=== PATIENT | male | born 1940 | race Caucasian/White ===

== ENCOUNTER → 2016-10-09 | Outpatient (CLI) | payer OTHER, BC ==
[~2016-10-09] MED LIST: ALPR0.25 PO; ASPCH81X PO; ATOR-26 PO; CARV6.252 PO; CLOP1TAB5 PO; CRD200 PO; CYAN10002 IM; DOCU-94 PO; ERGO500037 PO; FINA5TAB4 PO; FOLI1TAB7 PO; HYDR-3983 PO; ISOS-11 PO; LEVO125T72 PO; MAGN400T5 PO; NITRSPR6 TL; NSNN50 NAE; OXGN; OXYB5TAB74 PO; PANT40TA PO; POLY335019 PO; RAMI2.5C PO; RANI150T3 PO; ROPI0.5T15 PO; RQP/5 PO; TAMS0.4C59 PO; WLLSR/150 PO
[2016-10-09 19:26] LABS: BLOOD UREA NITROGEN 38 mg/dl (7-18); BUN/CREATININE RATIO 25.1 (10-20); CALCIUM 9.1 mg/dl (8.5-10.1); CARBON DIOXIDE 27 mmol/L (21-32); CHLORIDE 105 mmol/L (98-107); GLUCOSE 80 mg/dl (70-99); SODIUM 139 mmol/L (136-145)
[2016-10-09 19:37] LABS: PHOSPHORUS 3.3 mg/dl (2.5-4.9)
[2016-10-13 16:24] LABS: URCREATININE 89.8 MG/DL (>/= 20)
--- NOTE | 2016-10-15 12:22 | CODING QUERY MEDICAL NECESSITY ---
SUPPORTING DIAGNOSIS NEEDED Ritter SHARMA, A supporting diagnosis is required for the test/procedure performed on this patient in order for us to be reimbursed by the patient's insurance. Please provide a supporting diagnosis for the following test/procedure listed below next to the test name along with your signature. *If there is no additional diagnosis for this patient that would support the following test/procedure please document that below next to the test/procedure. Test(s)/Procedure(s) that require a supporting diagnosis: * ([id number]) DRUG SCREEN URINE DIAGNOSIS: * ([id number]) BENZODIAZEPINE VERIFICAT URINE DIAGNOSIS: DATE OF SERVICE: 10/09/16 Provider Signature: Date: Thank you Frankie Hargrove [facility] Information Management Once completed, please kindly fax back to [phone] For questions please call [phone]
== END | disposition home or self-care (01) ==
LOC: C.LABMFLN 11:55
PROVIDERS: ATTEND Internal Medicine Nephrology
DX: E03.9 Hypothyroidism, unspecified (principal); N18.3 Chronic kidney disease, stage 3 (moderate); Z02.89 Encounter for other administrative examinations

== ENCOUNTER → 2016-10-10 | Outpatient (CLI) | payer OTHER, BC ==
[2016-10-10 13:31] LABS: CHOLESTEROL/HDL RATIO 2.7
== END | disposition home or self-care (01) ==
LOC: C.LABMFLN 07:55
PROVIDERS: ATTEND Nurse Practitioner Adult Health
DX: E78.5 Hyperlipidemia, unspecified (principal)

== ENCOUNTER → 2016-12-12 | Outpatient (CLI) | payer OTHER, BC ==
[~2016-12-12] MED LIST changes: +DTR/5 PO; -OXYB5TAB74 PO
--- NOTE | 2016-12-12 14:15 | DIAGNOSTIC IMAGING REPORT ---
CT HEAD WITHOUT CONTRAST (CT) CLINICAL HISTORY: CEREBRAL VASCULAR DISEASE, GAIT APRAXIA LEG WEAKNESS COMPARISON STUDY: 11/10/2011 TECHNIQUE: Axial CT of the brain is performed from the vertex to the skull base. IV contrast was not administered for this examination. CT DOSE: 729.78 mGycm FINDINGS: No intra or extra-axial mass lesions are visualized. There is no CT evidence of acute cortical infarction. There is no evidence of midline shift. There is no acute hemorrhage. No calvarial fractures are visualized. There are patchy white matter hypodensities likely on a small vessel basis. There is no evidence of pathologic ventricular dilatation. There is no evidence of acute sinusitis IMPRESSION: No acute intracranial findings Electronically signed by: Spencer Holly M.D. 12/12/2016 2:13 PM Dictated Date/Time: 12/12/2016 2:08 PM
== END | disposition home or self-care (01) ==
LOC: C.CTS 13:19
PROVIDERS: ATTEND Psychiatry & Neurology Neurology
DX: I67.9 Cerebrovascular disease, unspecified (principal); N31.9 Neuromuscular dysfunction of bladder, unspecified; R48.2 Apraxia

== ENCOUNTER → 2017-01-23 | Outpatient (CLI) | payer OTHER, BC ==
--- NOTE | 2017-01-23 14:55 | DIAGNOSTIC IMAGING REPORT ---
L-SPINE MIN 4 VIEWS ROUTINE CLINICAL HISTORY: N31.9 Neurogenic [id number] chronic back pain COMPARISON STUDY: No previous studies for comparison. FINDINGS: There are advanced multilevel degenerative changes. There is multilevel disc space narrowing and prominent lateral osteophyte formation. No acute fractures or traumatic subluxations are visualized. Note is made of vascular calcifications. IMPRESSION: Advanced multilevel degenerative change. No acute fractures. Electronically signed by: Spencer Holly M.D. 01/23/2017 2:53 PM Dictated Date/Time: 01/23/2017 2:52 PM
--- NOTE | 2017-01-23 15:08 | DIAGNOSTIC IMAGING REPORT ---
CERVICAL SPINE 5 VIEWS HISTORY: Neurogenic bladder. COMPARISON: None. FINDINGS: The cervical spinal is from C1 through the superior endplate of C7 on the lateral view. There is reversal of the normal lordotic curvature. There is 1.8 mm anterolisthesis of C2 on C3. Severe disc space narrowing at C3-C4 and C4-C5. The C5-C6 vertebral bodies are likely fused. There is no fracture. Mild to moderate facet degenerative changes throughout the cervical spine. There is also mild to moderate bilateral neural foraminal narrowing throughout the cervical spine. Pacemaker wires are noted. Poststernotomy changes. Prevertebral soft tissues and the atlantodens interval are intact. IMPRESSION: 1. No fractures within the cervical spine. 2. Advanced degenerative changes as described above. There is fusion of the C5-C6 vertebral bodies. 3. Reversal of the normal lordotic curvature. Electronically signed by: Jose Cruz Byrnes M.D. 01/23/2017 3:06 PM Dictated Date/Time: 01/23/2017 3:04 PM
--- NOTE | 2017-01-23 15:34 | DIAGNOSTIC IMAGING REPORT ---
THORACIC SPINE 3 VIEWS HISTORY: N31.9 Neurogenic [id number] COMPARISON: None. FINDINGS: There is no fracture. No subluxation. Straightening of the upper to mid thoracic spine. There are large anterior flowing osteophytes within the mid thoracic spine. Moderate to severe degenerative disc disease throughout the thoracic spine. Left-sided pacemaker/defibrillator. Poststernotomy changes. IMPRESSION: No fracture or subluxation within the thoracic spine. Moderate to severe degenerative disc disease. Electronically signed by: Jose Cruz Byrnes M.D. 01/23/2017 3:33 PM Dictated Date/Time: 01/23/2017 3:32 PM
== END | disposition home or self-care (01) ==
LOC: C.RAD 13:27
PROVIDERS: ATTEND Psychiatry & Neurology Neurology
DX: N31.9 Neuromuscular dysfunction of bladder, unspecified (principal); M48.02 Spinal stenosis, cervical region; M47.812 Spondylosis without myelopathy or radiculopathy, cervical region; M50.31 Other cervical disc degeneration, high cervical region; M50.321 Other cervical disc degeneration at C4-C5 level; M40.202 Unspecified kyphosis, cervical region; M51.36 Other intervertebral disc degeneration, lumbar region; M51.34 Other intervertebral disc degeneration, thoracic region

== ENCOUNTER → 2017-02-02 | Outpatient (CLI) | payer OTHER, BC ==
[2017-02-02 18:53] LABS: ALT/SGPT 24 U/L (12-78); AST/SGOT 23 U/L (15-37); BLOOD UREA NITROGEN 37 mg/dl (7-18); BUN/CREATININE RATIO 24.8 (10-20); CALCIUM 8.5 mg/dl (8.5-10.1); CARBON DIOXIDE 28 mmol/L (21-32); CHLORIDE 106 mmol/L (98-107); GLUCOSE 93 mg/dl (70-99); POTASSIUM 4.9 mmol/L (3.5-5.1); SODIUM 141 mmol/L (136-145)
[2017-02-02 18:58] LABS: ALB/GLOB RATIO 0.7 (0.9-2); ALKALINE PHOSPHATASE 112 U/L (45-117); PHOSPHORUS 3.3 mg/dl (2.5-4.9); PROSTATE SPECIFIC ANTIGEN 0.133 ng/ml (0.000-4.000)
--- NOTE | 2017-02-06 08:47 | CODING QUERY MEDICAL NECESSITY ---
SUPPORTING DIAGNOSIS NEEDED Dr. Ware, A supporting diagnosis is required for the test/procedure performed on this patient in order for us to be reimbursed by the patient's insurance. Please provide a supporting diagnosis for the following test/procedure listed below next to the test name along with your signature. *If there is no additional diagnosis for this patient that would support the following test/procedure please document that below next to the test/procedure. Test(s)/Procedure(s) that require a supporting diagnosis: * ([id number]) B12 VITAMIN LEVEL DIAGNOSIS: * ([id number]) FOLATE LEVEL DIAGNOSIS: DATE OF SERVICE: 02/02/17 Provider Signature: Date: Thank you Frankie Hargrove [facility] Information Management Once completed, please kindly fax back to [phone] For questions please call [phone]
== END | disposition home or self-care (01) ==
LOC: C.LABMFLN 12:35
PROVIDERS: ATTEND Internal Medicine Nephrology
DX: N40.1 Benign prostatic hyperplasia with lower urinary tract symptoms (principal); N18.3 Chronic kidney disease, stage 3 (moderate); G62.9 Polyneuropathy, unspecified; E53.8 Deficiency of other specified B group vitamins; R26.9 Unspecified abnormalities of gait and mobility; G60.3 Idiopathic progressive neuropathy

== ENCOUNTER → 2017-02-13 | Outpatient (CLI) | payer OTHER, BC ==
[2017-02-17 06:13] LABS: ALBUMIN % 38.21 %; ALPHA-2-GLOBULIN % 14.79 %; BETA GLOBULIN % 20.43 %; CREATININE UR 73 MG/DL (20-370); GAMMA GLOBULIN % 21.36 %
== END | disposition home or self-care (01) ==
LOC: C.LABMFLN 12:45
PROVIDERS: ATTEND Psychiatry & Neurology Neurology
DX: G62.9 Polyneuropathy, unspecified (principal)

== ENCOUNTER → 2017-05-06 | Outpatient (CLI) | payer OTHER, BC ==
[~2017-05-06] MED LIST changes: -DTR/5 PO; +OXYB5TAB74 PO
== END | disposition home or self-care (01) ==
LOC: C.LABMFLN 13:27
PROVIDERS: ATTEND Urology
DX: N40.1 Benign prostatic hyperplasia with lower urinary tract symptoms (principal)

== ENCOUNTER → 2017-06-22 | Outpatient (CLI) | payer OTHER, BC ==
[~2017-06-22] MED LIST changes: +DTR/5 PO; -OXYB5TAB74 PO
[2017-06-22 18:29] LABS: ALT/SGPT 23 U/L (12-78); AST/SGOT 28 U/L (15-37); BLOOD UREA NITROGEN 31 mg/dl (7-18); BUN/CREATININE RATIO 21.7 (10-20); CARBON DIOXIDE 29 mmol/L (21-32); CHLORIDE 103 mmol/L (98-107); CREATININE 1.44 mg/dl (0.60-1.40); GLUCOSE 74 mg/dl (70-99); MAGNESIUM 1.8 mg/dl (1.8-2.4); POTASSIUM 4.6 mmol/L (3.5-5.1); SODIUM 137 mmol/L (136-145)
[2017-06-22 18:37] LABS: ALB/GLOB RATIO 0.7 (0.9-2); ALKALINE PHOSPHATASE 119 U/L (45-117); CHOLESTEROL 89 mg/dl (0-200); CHOLESTEROL/HDL RATIO 2.7; FERRITIN 110.7 ng/ml (8.0-388.0); HDL CHOLESTEROL 33 mg/dl; LDL CHOLESTEROL CALCULATED 34 mg/dl; TRIGLYCERIDES 110 mg/dl (0-150); VERY LOW DENSITY LIPOPROT CALC 22 mg/dl
--- NOTE | 2017-07-01 07:02 | CODING QUERY MEDICAL NECESSITY ---
SUPPORTING DIAGNOSIS NEEDED A supporting diagnosis is required for the test/procedure performed on this patient in order for us to be reimbursed by the patient's insurance. Please provide a supporting diagnosis for the following test/procedure listed below next to the test name along with your signature. *If there is no additional diagnosis for this patient that would support the following test/procedure please document that below next to the test/procedure. Test(s)/Procedure(s) that require a supporting diagnosis: * VITAMIN B12 DIAGNOSIS: Provider Signature: Date: Thank you Praveena Warner too[employer]me Information Management Once completed, please kindly fax back to [phone] For questions please call [phone]
== END | disposition home or self-care (01) ==
LOC: C.LABMFLN 14:00
PROVIDERS: ATTEND Nurse Practitioner Family
DX: N40.1 Benign prostatic hyperplasia with lower urinary tract symptoms (principal); I25.10 Atherosclerotic heart disease of native coronary artery without angina pectoris; K21.0 Gastro-esophageal reflux disease with esophagitis; I48.91 Unspecified atrial fibrillation; I12.9 Hypertensive chronic kidney disease with stage 1 through stage 4 chronic kidney disease, or unspecified chronic kidney disease; J45.909 Unspecified asthma, uncomplicated; N18.3 Chronic kidney disease, stage 3 (moderate); G89.29 Other chronic pain; G47.33 Obstructive sleep apnea (adult) (pediatric); E78.5 Hyperlipidemia, unspecified

== ENCOUNTER → 2017-07-21 | Outpatient (CLI) | payer OTHER, BC ==
[2017-07-21 18:11] LABS: BLOOD UREA NITROGEN 36 mg/dl (7-18); CREATININE 1.43 mg/dl (0.60-1.40)
== END | disposition home or self-care (01) ==
LOC: C.LABMFLN 14:58
PROVIDERS: ATTEND Physician Assistant
DX: M54.5 Low back pain (principal)

== ENCOUNTER → 2017-09-02 | Outpatient (CLI) | payer OTHER, BC ==
[~2017-09-02] MED LIST changes: -FOLI1TAB7 PO; +FOLI1TAB8 PO
[2017-09-02 17:57] LABS: HEMATOCRIT 36.8 % (42-52); HEMOGLOBIN 11.9 g/dL (14.0-18.0); MEAN CELL VOLUME 93.9 fL (80-100); MEAN CORPUSCULAR HEMOGLOBIN 30.4 pg (25-34); MEAN CORPUSCULAR HGB CONC 32.3 g/dl (32-36); MEAN PLATELET VOLUME 10.4 fL (7.4-10.4); PLATELET COUNT 183 K/uL (130-400); RED CELL DISTRIBUTION WIDTH CV 15.4 % (11.5-14.5); RED CELL DISTRIBUTION WIDTH SD 53.3 fL (36.4-46.3); WHITE BLOOD COUNT 5.73 K/uL (4.8-10.8)
[2017-09-02 18:17] LABS: BLOOD UREA NITROGEN 32 mg/dl (7-18); CALCIUM 9.1 mg/dl (8.5-10.1); CARBON DIOXIDE 28 mmol/L (21-32); CREATININE 1.45 mg/dl (0.60-1.40); GLUCOSE 90 mg/dl (70-99); POTASSIUM 4.1 mmol/L (3.5-5.1); SODIUM 137 mmol/L (136-145)
[2017-09-02 18:28] LABS: PHOSPHORUS 2.9 mg/dl (2.5-4.9)
== END | disposition home or self-care (01) ==
LOC: C.LABMFLN 12:17
PROVIDERS: ATTEND Internal Medicine Nephrology
DX: E03.9 Hypothyroidism, unspecified (principal); N18.3 Chronic kidney disease, stage 3 (moderate)

== ENCOUNTER 2017-11-17 08:50 | Day surgery (SDC) | payer OTHER, BC ==
[~2017-11-17] VITALS: Ht 165.1 cm; Wt 89.0 kg
[2017-11-17] VITALS (10 sets, daily range): BP systolic 117–153; BP diastolic 46–73; PULSE 60–100; TEMP 36.4–36.6; O2SAT 93–97; Ht 165.1 cm; Wt 89.0 kg
[2017-11-17] MEDS ORDERED: ERGO500037 PO (09:39)
[2017-11-17] MEDS ORDERED: MIRA100T PO (09:40)
--- NOTE | 2017-11-17 11:26 | Discharge Instructions ---
Discharge Instructions Procedure Procedure Date: Nov 17, 2017. Reason for visit: Spinal Stenosis Lmbar/Pain/Ambulatory Dysfunction. Discharge Discharge Date: Nov 17, 2017. Discharge Diagnosis: Fluoroscopic guided lumbar myelogram for spinal stenosis, back pain and ambulatory dysfunction. Medications Stopped Medications Name(s): Resume home meds. Instructions Activity Recommendations: No limitations Return to School/Work: no limitations Recommended Home Diet: No Limitations Allergies Coded Allergies: Zolpidem (Verified Allergy, Unknown, UNKN, 11/17/17) Dio Darling Recommendations: Call your doctor if: * Temperature above 101 degrees * Pain not relieved by pain medicine ordered * There is increased drainage or redness from any incision * You have any unanswered questions or concerns. Your Doctors Instructions noted above were prepared by provider Misah Blanco. Patient Signature Section: Patient Instructions Signature Page Pk Pedraza Patient (or Guardian) Signature/Date: I have read and understand the instructions given to me by my caregivers. Caregiver/RN/Doctor Signature/Date: The above-named patient and/or guardian has received patient instructions on this date. + Original Patient Signature Page (only) stays with chart. Please make copy for patient.
[2017-11-17] MEDS ORDERED: ACETAMINOPHEN 500 MG TAB PO PRN (11:30)
--- NOTE | 2017-11-17 13:47 | DIAGNOSTIC IMAGING REPORT ---
MYELOGRAM,SUPER/INTER LUMBAR CLINICAL HISTORY: 77 years-old Male presenting with trouble walking. COMPARISON: CT from 2013. PROCEDURE: The procedure, risks and benefits were discussed with the patient including the risk of seizure, bleeding and infection. The patient agreed to the procedure and informed written consent was obtained. The procedure was performed by Dr. Blanco following a timeout. The L2-3 interspinous space was targeted. Skin overlying the space was prepped and draped in the usual aseptic fashion and local anesthesia was achieved with 1% lidocaine. Under intermittent fluoroscopic guidance, a 20-gauge x 3 1/2 in. Sprotte needle was inserted into the thecal sac. A total of 12 mL of Isovue 200 was administered intrathecally. This was confirmed under fluoroscopy. The patient tolerated the procedure well. There were no immediate complications. The patient was then transferred to the CT scanner. Fluoroscopy dosage (mGy): Not available. Fluoroscopy time: 1.4 minutes. Number of fluoroscopic spot images: 1. IMPRESSION: 1. Successful fluoroscopic guided lumbar myelogram with administration of 12 mL of Isovue 200. Electronically signed by: Misha Blanco M.D. 11/17/2017 11:29 AM Dictated Date/Time: 11/17/2017 11:27 AM
== END 2017-11-17 15:15 | disposition home or self-care (01) ==
LOC: C.CTS 08:50
PROVIDERS: ATTEND Orthopaedic Surgery Orthopaedic Surgery of the Spine
DX: M48.061 Spinal stenosis, lumbar region without neurogenic claudication (principal); R26.9 Unspecified abnormalities of gait and mobility

== ENCOUNTER → 2017-11-27 | Outpatient (CLI) | payer OTHER, BC ==
[~2017-11-27] MED LIST changes: -CLOP1TAB5 PO; +MIRA100T PO
[2017-11-27 19:09] LABS: ALBUMIN 2.8 gm/dl (3.4-5.0); ALT/SGPT 28 U/L (12-78); AST/SGOT 37 U/L (15-37); BLOOD UREA NITROGEN 27 mg/dl (7-18); CALCIUM 8.9 mg/dl (8.5-10.1); CARBON DIOXIDE 29 mmol/L (21-32); CREATININE 1.55 mg/dl (0.60-1.40); GLUCOSE 72 mg/dl (70-99); POTASSIUM 4.9 mmol/L (3.5-5.1); SODIUM 135 mmol/L (136-145)
[2017-11-27 19:20] LABS: ALKALINE PHOSPHATASE 140 U/L (45-117); TOTAL PROTEIN 7.4 gm/dl (6.4-8.2)
== END | disposition home or self-care (01) ==
LOC: C.LABMFLN 13:48
PROVIDERS: ATTEND Internal Medicine Cardiovascular Disease
DX: I25.10 Atherosclerotic heart disease of native coronary artery without angina pectoris (principal); I25.5 Ischemic cardiomyopathy; T82.118A Breakdown (mechanical) of other cardiac electronic device, initial encounter; X58.XXXA Exposure to other specified factors, initial encounter; N18.9 Chronic kidney disease, unspecified

== ENCOUNTER 2017-12-25 19:14 | Inpatient (IN) | payer OTHER, BC ==
[~2017-12-25] VITALS: Ht 162.6 cm; Wt 97.0 kg
--- NOTE | 2017-12-25 20:08 | EMERGENCY ROOM VISIT NOTE ---
History Report prepared by Lenard: Sy Piña Under the Supervision of: Dr. Martha Chacon D.O. First contact with patient: 19:55 Chief Complaint: FALL Stated Complaint: WEAKNESS History of Present Illness The patient is a 77 year old male who presents to the Emergency Room with complaints of constant weakness following multiple falls tonight. The patient states that he does not have any strength in his legs, which has caused him to fall frequently when walking for the last three weeks. He notes that he fell down twice today due to his weakness, prompting him to come to the emergency room tonight. He reports that his legs just give out and that he does not become dizzy or lose consciousness during his falls. He also complains of chills and right hip pain but denies any shoulder pain, elbow pain, and trouble urinating/having bowel movements. The patient states that he typically uses a walker or electric chair to move around. He notes that he has a history of upper and lower back problems and kidney problems but does not have any problems with his sugar. He reports that his current leg swelling is normal for him. Source of History: patient Onset: tonight Position: other (right him) Quality: other (weakness) Timing: constant Modifying Factors (Worsening): other (walking) Associated Symptoms: + chills, + weakness, No LOC Note: He also complains of right hip pain. The patient denies any dizziness, shoulder pain, elbow pain, and trouble urinating/having bowel movements. Review of Systems See HPI for pertinent positives & negatives. A total of 10 systems reviewed and were otherwise negative. Past Medical & Surgical Medical Problems: (1) A-fib (2) Acute on chronic renal insufficiency (3) Ambulatory dysfunction (4) Anemia (5) Cardiomyopathy (6) CHF (congestive heart failure) (7) Frequent falls (8) Hypertension (9) Pacemaker (10) Physical deconditioning Surgical Problems: (1) H/O heart artery stent (2) History of cholecystectomy (3) History of hernia repair (4) History of open heart surgery (5) Knee joint replacement status Family History Cancer Heart disease Hypertension Kidney stones Social History Smoking Status: Former Smoker Drug Use: none Marital Status: Housing Status: lives with roommate Occupation Status: retired Current/Historical Medications Scheduled Amiodarone HCl (Amiodarone HCl), 200 MG PO QAM Aspirin (Aspirin Chewable), 81 MG PO QPM Atorvastatin (Lipitor), 80 MG PO QAM Bupropion Hcl (Wellbutrin Sr), 150 MG PO BID Carvedilol (Coreg), 6.25 MG PO BID Docusate Sodium (Colace), 1 CAP PO DAILY Ergocalciferol (Vitamin D 60703 Unit), 50,000 UNITS PO WK Finasteride (Proscar), 5 MG PO HS Folic Acid (Folvite), 1 MG PO QAM Gabapentin (Gabapentin), 200 MG PO BID Isosorbide Mononitrate (Isosorbide Mononitrate ER), 1 TAB PO DAILY Levothyroxine Sodium (Levothyroxine Sodium), 137 MCG PO QAM Lorazepam (Lorazepam), 0.5 MG PO QPM Magnesium Oxide (Mag-Ox), 400 MG PO QAM Mirabegron (Myrbetriq Er), 25 MG PO DAILY Nitroglycerin (Nitroglycerin Lingual), 1 SPRAYS TL UD Oxybutynin Chloride (Ditropan), 5 MG PO BID Polyethylene Glycol 3350 (Miralax), 17 GM PO QAM Pramipexole Dihydrochloride (Pramipexole Dihydrochlori), 1 MG PO DAILY Ramipril (Ramipril), 1 CAP PO HS Ranitidine Hcl (Zantac), 2 TAB PO BID Ropinirole (Requip), 2 TAB PO BID Tamsulosin Hcl (Flomax), 0.4 MG PO BID Scheduled PRN Hydrocodone/Acetaminophen 7.5MG/325MG ([place] 7.5MG/325MG), 1-2 TABS PO Q4 PRN for Pain Mometasone Furoate (Nasal) (Mometasone Furoate), 2 SPRAYS ALISON DAILY PRN for Nasal Congestion Miscellaneous Medications Furosemide (Lasix), 20 MG PO Allergies Coded Allergies: Zolpidem (Verified Allergy, Unknown, UNKN, 11/17/17) Physical Exam Vital Signs Date Time Temp Pulse Resp B/P (MAP) Pulse Ox O2 Delivery O2 Flow Rate FiO2 12/25/17 23:00 65 22 149/76 91 Room Air 12/25/17 22:25 65 14 154/83 91 Room Air 12/25/17 21:36 61 20 155/86 92 Room Air 12/25/17 20:38 65 12/25/17 20:32 62 19 151/76 93 Room Air 12/25/17 20:27 93 Room Air 12/25/17 19:14 36.4 64 16 154/76 92 Room Air Physical Exam GENERAL: alert, well nourished, no distress, non-toxic, obese, somnolent EYE EXAM: normal conjunctiva, PERRL and EOM's grossly intact OROPHARYNX: no exudate, no erythema, lips, buccal mucosa, and tongue normal and mucous membranes are dry NECK: supple, no nuchal rigidity, no adenopathy, non-tender LUNGS: Normal chest wall mechanics, decreased breath sounds, no wheezes, rhonchi , and rales. HEART: no murmurs, S1 normal and S2 normal ABDOMEN: abdomen soft, non-tender, normo-active bowel sounds, no masses, no rebound or guarding. BACK: Back is symmetrical on inspection and there is no deformity, no midline tenderness, no CVA tenderness. SKIN: no rashes and no bruising UPPER EXTREMITIES: upper extremities are grossly normal. LOWER EXTREMITIES: 3+ distal lower extremity edema, mild erythema to the bilateral lower extremities, not warm to touch, no vesicles, no petechia, no bullae. NEURO EXAM: Awake, oriented, moves all four extremities spontaneously, generalized weakness, normal sensory exam. Medical Decision & Procedures ER Provider Diagnostic Interpretation: Radiology results have been interpreted by the radiologist and reviewed by me. L KNEE 1 OR 2 VIEWS ROUTINE FINDINGS: Bones are mildly demineralized. Tricompartmental osteoarthritis, moderate within the lateral compartment and severe is in the medial and patellofemoral compartments. Chondrocalcinosis. Ossifications are noted within the suprapatellar tissues measuring up to 1.6 cm. Trace joint effusion. Peripheral arterial disease. Surgical clips project over the popliteal tissues. No acute fracture or dislocation. IMPRESSION: 1. No acute fracture or dislocation. 2. Tricompartmental osteoarthritis with chondrocalcinosis, trace joint effusion and suspected intra-articular loose bodies. 3. Peripheral arterial disease. The above report was generated using voice recognition software. It may contain grammatical, syntax or spelling errors. Electronically signed by: Rohan Stiles M.D. 12/25/2017 9:46 PM R PELVIS/UNILATERAL HIP 2-3VIEWS, R FEMUR 2 VIEWS ROUTINE FINDINGS: PELVIS: Bones appear mildly demineralized. Moderate degenerative changes about the bilateral femoral acetabular joints. Peripheral vascular disease with phleboliths of the pelvis. Multilevel degenerative changes about the lower lumbar spine. No acute fracture or dislocation. FEMUR: No acute fracture or dislocation. Imaged right hemipelvis appears intact. Right knee arthroplasty changes. Moderate soft tissue swelling about the knee with soft tissue prominence of the popliteal fossa displacing adjacent peripherally calcified arterial structures. IMPRESSION: 1. No acute fracture or dislocation. 2. Degenerative changes as above with right knee arthroplasty. 3. Soft tissue swelling about the knee with soft tissue prominence of the popliteal fossa displacing adjacent calcified arterial structures. Posttraumatic etiology and/or Mary's cyst are differential considerations. Correlate with clinical exam. The above report was generated using voice recognition software. It may contain grammatical, syntax or spelling errors. Electronically signed by: Rohan Stiles M.D. 12/25/2017 9:44 PM CHEST ONE VIEW PORTABLE FINDINGS: Cardiac silhouette is moderately enlarged. Left subclavian pacer/AICD appears unchanged. Coronary arterial stent graft noted. Prior median sternotomy. No pneumothorax. Small bilateral pleural effusions with pulmonary vascular congestion and bilateral mixed interstitial and alveolar opacities. Lungs are hypoinflated. Cholecystectomy clips are noted. Degenerative changes of the shoulders and spine. IMPRESSION: 1. Cardiomegaly with bilateral mixed interstitial and alveolar opacities suggesting pulmonary edema with superimposed pneumonia difficult to exclude.. 2. Small bilateral pleural effusions. The above report was generated using voice recognition software. It may contain grammatical, syntax or spelling errors. Electronically signed by: Rohan Stiles M.D. 12/25/2017 9:55 PM R PELVIS/UNILATERAL HIP 2-3VIEWS, R FEMUR 2 VIEWS ROUTINE FINDINGS: PELVIS: Bones appear mildly demineralized. Moderate degenerative changes about the bilateral femoral acetabular joints. Peripheral vascular disease with phleboliths of the pelvis. Multilevel degenerative changes about the lower lumbar spine. No acute fracture or dislocation. FEMUR: No acute fracture or dislocation. Imaged right hemipelvis appears intact. Right knee arthroplasty changes. Moderate soft tissue swelling about the knee with soft tissue prominence of the popliteal fossa displacing adjacent peripherally calcified arterial structures. IMPRESSION: 1. No acute fracture or dislocation. 2. Degenerative changes as above with right knee arthroplasty. 3. Soft tissue swelling about the knee with soft tissue prominence of the popliteal fossa displacing adjacent calcified arterial structures. Posttraumatic etiology and/or Mary's cyst are differential considerations. Correlate with clinical exam. The above report was generated using voice recognition software. It may contain grammatical, syntax or spelling errors. Electronically signed by: Rohan Stiles M.D. 12/25/2017 9:44 PM HEAD WITHOUT CONTRAST (CT) FINDINGS: No acute intracranial hemorrhage, midline shift, intracranial mass, hydrocephalus, territorial ischemia or abnormal extra-axial collection. Moderate atrophy with ex vacuo ventriculomegaly. Moderate degree of low-attenuation within the periventricular white matter suggests chronic microvascular ischemic changes. The calvarium is intact. The paranasal sinuses, mastoid air cells, and middle ear cavities are clear. IMPRESSION: No acute intracranial abnormality. The above report was generated using voice recognition software. It may contain grammatical, syntax or spelling errors. Electronically signed by: Rohan Stiles M.D. 12/25/2017 9:15 PM CERVICAL SPINE W/O FINDINGS: No acute cervical spine fracture or subluxation. Mastoid air cells appear clear. The bones appear mildly demineralized. Severe multilevel intervertebral disc space narrowing with prominent endplate spurring and moderate to severe facet arthrosis. 3 mm anterolisthesis C2 on C3 is unchanged secondary to severe left-sided facet disease at this level. Partially calcified pannus is noted posterior to the odontoid process. Multilevel large posterior disc osteophyte complex formations are noted causing varying degrees of central canal and foraminal narrowing. Severe foraminal stenosis is seen at several levels. There is at least moderate central canal stenosis seen at several levels. Evaluation of the central canal and neuroforamina would be better assessed by MRI. Left subclavian pacer wires are partially imaged. No focal abnormality of the lung apices. Dense atherosclerosis of the carotid bulbs. IMPRESSION: No acute cervical spine fracture or subluxation. The above report was generated using voice recognition software. It may contain grammatical, syntax or spelling errors. Electronically signed by: Rohan Stiles M.D. 12/25/2017 9:23 PM Laboratory Results 12/25/17 20:20 Red Blood Count 3.58, Mean Corpuscular Volume 93.3, Mean Corpuscular Hemoglobin 30.2, Mean Corpuscular Hemoglobin Concent 32.3, Mean Platelet Volume 9.2, Neutrophils (%) (Auto) 71.7, Lymphocytes (%) (Auto) 16.5, Monocytes (%) (Auto) 7.9, Eosinophils (%) (Auto) 3.3, Basophils (%) (Auto) 0.6, Neutrophils # (Auto) 3.47, Lymphocytes # (Auto) 0.80, Monocytes # (Auto) 0.38, Eosinophils # (Auto) 0.16, Basophils # (Auto) 0.03 12/25/17 20:20 Test 12/25/17 20:20 12/25/17 20:50 White Blood Count 4.84 K/uL (4.8-10.8) Red Blood Count 3.58 M/uL (4.7-6.1) Hemoglobin 10.8 g/dL (14.0-18.0) Hematocrit 33.4 % (42-52) Mean Corpuscular Volume 93.3 fL (80-100) Mean Corpuscular Hemoglobin 30.2 pg (25-34) Mean Corpuscular Hemoglobin Concent 32.3 g/dl (32-36) Platelet Count 162 K/uL (130-400) Mean Platelet Volume 9.2 fL (7.4-10.4) Neutrophils (%) (Auto) 71.7 % Lymphocytes (%) (Auto) 16.5 % Monocytes (%) (Auto) 7.9 % Eosinophils (%) (Auto) 3.3 % Basophils (%) (Auto) 0.6 % Neutrophils # (Auto) 3.47 K/uL (1.4-6.5) Lymphocytes # (Auto) 0.80 K/uL (1.2-3.4) Monocytes # (Auto) 0.38 K/uL (0.11-0.59) Eosinophils # (Auto) 0.16 K/uL (0-0.5) Basophils # (Auto) 0.03 K/uL (0-0.2) RDW Standard Deviation 57.5 fL (36.4-46.3) RDW Coefficient of Variation 16.6 % (11.5-14.5) Immature Granulocyte % (Auto) 0.0 % Immature Granulocyte # (Auto) 0.00 K/uL (0.00-0.02) Prothrombin Time 12.1 SECONDS (9.0-12.0) Prothromb Time International Ratio 1.2 (0.9-1.1) Anion Gap 4.0 mmol/L (3-11) Est Creatinine Clear Calc Drug Dose 44.4 ml/min Estimated GFR () 51.6 Estimated GFR (Non- 44.5 BUN/Creatinine Ratio 17.2 (10-20) Calcium Level 8.8 mg/dl (8.5-10.1) Magnesium Level 1.7 mg/dl (1.8-2.4) Total Bilirubin 1.1 mg/dl (0.2-1) Aspartate Amino Transf (AST/SGOT) 53 U/L (15-37) Alanine Aminotransferase (ALT/SGPT) 29 U/L (12-78) Alkaline Phosphatase 194 U/L (45-117) Troponin I < 0.015 ng/ml (0-0.045) Pro-B-Type Natriuretic Peptide 00604 pg/ml (0-900) Total Protein 7.3 gm/dl (6.4-8.2) Albumin 2.7 gm/dl (3.4-5.0) Globulin 4.6 gm/dl (2.5-4.0) Albumin/Globulin Ratio 0.6 (0.9-2) Urine Color YELLOW Urine Appearance CLEAR (CLEAR) Urine pH 6.0 (4.5-7.5) Urine Specific Micro 1.020 (1.000-1.030) Urine Protein NEG (NEG) Urine Glucose (UA) NEG (NEG) Urine Ketones NEG (NEG) Urine Occult Blood NEG (NEG) Urine Nitrite NEG (NEG) Urine Bilirubin NEG (NEG) Urine Urobilinogen NEG (NEG) Urine Leukocyte Esterase NEG (NEG) Laboratory results per my review. Medications Administered Medications (Trade) Dose Ordered Sig/[place] Route Start Time Stop Time Status Last Admin Dose Admin Furosemide (Lasix Inj) 40 mg NOW STAT IV 12/25/17 22:10 12/25/17 22:11 DC 12/25/17 22:21 40 MG ECG Per My Interpretation Indication: weakness Rate (beats per minute): 63 Rhythm: other (paced) Findings: no acute ischemic change, other (Prolonged intervals consistent with pacing) ED Course 1956: The patient was evaluated in room C3. A complete history and physical exam was performed. 2034: Nursing spoke to one of the patient's friends who lives with him and assists in caring for him. Per friend, the patient's legs do not seem able to move as fast as he would like them to. She notes that she has difficulty with her mobility, which makes taking care of the patient difficult. She reports that she and the patient do not eat very well. She believes that the patient would benefit from a rehab stay, but states that the patient would probably rather have outpatient help. She notes that the patient sometimes becomes confused. 2039: Case management was able to obtain files from the patient's last visit from 06/2017. At that time, his lower extremity edema was graded to be 1+. The patient was also noted to have a significant cardiac history which included having a defibrillator. Last echo in the fall 2016 showed an ejection fraction of 20-25%. Patient does have a BiV pacemaker/defibrillator. 2209: Furosemide 40mg IV 2220: I rechecked the patient. 2247: Upon reevaluation, the patient is stable. I discussed the findings and the treatment plan with the patient. He expresses agreement and understanding. I spoke with Dr. Colmenares of the [facility] Hospitalist Service. He will be evaluated for further management. Medical Decision Differential diagnosis: Etiologies such as metabolic, infection, hypo/hyperglycemia, electrolyte abnormalities, cardiac sources, intracerebral event, toxicologic, neurologic, as well as others were entertained. Patient reports he falls frequently and falling twice today was not necessarily new for him, I have concerns regarding the patient's safety. Patient has no power of criminal defense attorney, and has a friend living with him who helps to care for him. However in discussion with case management called and talked with her, she is a difficult time caring for herself. Patient did not list any other family locally that could help him. No acute traumatic injury noted given the 2 recent falls today. Patient with significant cardiac history is eventually discovered on review of EMR, it is unclear if this poor ejection fraction is the cause of his falls. Given outpatient office visit from a fall recording 1+ edema, patient's significantly worsened edema today could likely be contributing also. Patient able to answer all questions appropriately, hemodynamically stable. I do not suspect bacteremia/sepsis. Patient is not currently on a diuretic, does appear to have mild chronic kidney disease. Patient was given 1 dose of Lasix in the department to assist in the lower extremity edema. I feel patient would likely benefit from inpatient rehab or eventual placement in a senior care and have concerns regarding the patient's ability to care for himself at home without sustaining any additional injury. Patient's roommate/friend also states that they have a difficult time even obtaining meals and taking medication. I do not suspect occult infectious etiology otherwise, no evidence of dysrhythmia on telemetry, I do not suspect ACS. Medication Reconcilliation Current Medication List: was personally reviewed by me Blood Pressure Screening Patient's blood pressure: Elevated blood pressure Elevated blood pressure will be monitored by hospitalist. Consults Time Called: [phone] Consulting Physician: Dr. Colmenares - Hospitalist, [facility] Returned Call: [phone] I reviewed the patient's case with Dr. Colmenares. He will evaluate the patient for further management. Impression Primary Impression: Generalized weakness Additional Impressions: Lower extremity edema Frequent falls Elevated brain natriuretic peptide (BNP) level Anemia Obesity Hypomagnesemia Scribe Attestation The scribe's documentation has been prepared under my direction and personally reviewed by me in its entirety. I confirm that the note above accurately reflects all work, treatment, procedures, and medical decision making performed by me. Departure Information Dispostion Being Evaluated By Hospitalist Referrals Gavin Laboy III, CRNP (PCP) Patient Instructions My [facility] Problem Qualifiers Additional Impressions: Anemia Anemia type: unspecified type Qualified Codes: D64.9 - Anemia, unspecified Obesity Obesity type: unspecified obesity type Obesity classification: unspecified obesity classification Serious obesity comorbidity presence: unspecified whether serious comorbidity present Qualified Codes: E66.9 - Obesity, unspecified
[2017-12-25 20:37] LABS: BASO % 0.6 %; BASO ABS # 0.03 K/uL (0-0.2); EOS % 3.3 %; EOS ABS # 0.16 K/uL (0-0.5); HEMATOCRIT 33.4 % (42-52); HEMOGLOBIN 10.8 g/dL (14.0-18.0); LYMPH % 16.5 %; MEAN CELL VOLUME 93.3 fL (80-100); MEAN CORPUSCULAR HEMOGLOBIN 30.2 pg (25-34); MEAN CORPUSCULAR HGB CONC 32.3 g/dl (32-36); MEAN PLATELET VOLUME 9.2 fL (7.4-10.4); MONO % 7.9 %; MONO ABS # 0.38 K/uL (0.11-0.59); NEUT % 71.7 %; NEUT ABS # 3.47 K/uL (1.4-6.5); PLATELET COUNT 162 K/uL (130-400); RED CELL DISTRIBUTION WIDTH CV 16.6 % (11.5-14.5); RED CELL DISTRIBUTION WIDTH SD 57.5 fL (36.4-46.3); WHITE BLOOD COUNT 4.84 K/uL (4.8-10.8)
[2017-12-25 20:52] LABS: INR 1.2 (0.9-1.1)
[2017-12-25 20:54] LABS: ALBUMIN 2.7 gm/dl (3.4-5.0); ALT/SGPT 29 U/L (12-78); AST/SGOT 53 U/L (15-37); BLOOD UREA NITROGEN 26 mg/dl (7-18); CALCIUM 8.8 mg/dl (8.5-10.1); CARBON DIOXIDE 29 mmol/L (21-32); CREATININE 1.51 mg/dl (0.60-1.40); GLUCOSE 62 mg/dl (70-99); POTASSIUM 4.1 mmol/L (3.5-5.1); SODIUM 140 mmol/L (136-145)
[2017-12-25 20:59] LABS: ALKALINE PHOSPHATASE 194 U/L (45-117); TOTAL PROTEIN 7.3 gm/dl (6.4-8.2)
--- NOTE | 2017-12-25 21:16 | DIAGNOSTIC IMAGING REPORT ---
HEAD WITHOUT CONTRAST (CT) CLINICAL HISTORY: 77 years-old Male with trauma, fall. Acute head injury status post fall TECHNIQUE: Multiple axial CT images of the head were obtained without contrast. A dose lowering technique was utilized adhering to the principles of ALARA. COMPARISON: CT cervical spine of same day, CT head 05/27/2017. FINDINGS: No acute intracranial hemorrhage, midline shift, intracranial mass, hydrocephalus, territorial ischemia or abnormal extra-axial collection. Moderate atrophy with ex vacuo ventriculomegaly. Moderate degree of low-attenuation within the periventricular white matter suggests chronic microvascular ischemic changes. The calvarium is intact. The paranasal sinuses, mastoid air cells, and middle ear cavities are clear. IMPRESSION: No acute intracranial abnormality. The above report was generated using voice recognition software. It may contain grammatical, syntax or spelling errors. Electronically signed by: Rohan Stiles M.D. 12/25/2017 9:15 PM Dictated Date/Time: 12/25/2017 9:12 PM
--- NOTE | 2017-12-25 21:25 | DIAGNOSTIC IMAGING REPORT ---
CERVICAL SPINE W/O CT DOSE: 1320.10 mGy.cm CLINICAL HISTORY: 77 years-old Male with trauma, fall. Acute neck injury status post fall COMPARISON: CT head of same day, CT cervical spine 05/27/2017 TECHNIQUE: Multiple axial CT images of the cervical spine were obtained without contrast. A dose lowering technique was utilized adhering to the principles of ALARA. FINDINGS: No acute cervical spine fracture or subluxation. Mastoid air cells appear clear. The bones appear mildly demineralized. Severe multilevel intervertebral disc space narrowing with prominent endplate spurring and moderate to severe facet arthrosis. 3 mm anterolisthesis C2 on C3 is unchanged secondary to severe left-sided facet disease at this level. Partially calcified pannus is noted posterior to the odontoid process. Multilevel large posterior disc osteophyte complex formations are noted causing varying degrees of central canal and foraminal narrowing. Severe foraminal stenosis is seen at several levels. There is at least moderate central canal stenosis seen at several levels. Evaluation of the central canal and neuroforamina would be better assessed by MRI. Left subclavian pacer wires are partially imaged. No focal abnormality of the lung apices. Dense atherosclerosis of the carotid bulbs. IMPRESSION: No acute cervical spine fracture or subluxation. The above report was generated using voice recognition software. It may contain grammatical, syntax or spelling errors. Electronically signed by: Rohan Stiles M.D. 12/25/2017 9:23 PM Dictated Date/Time: 12/25/2017 9:18 PM
--- NOTE | 2017-12-25 21:45 | DIAGNOSTIC IMAGING REPORT ---
R PELVIS/UNILATERAL HIP 2-3VIEWS, R FEMUR 2 VIEWS ROUTINE HISTORY: 77 years-old Male TRAUMA, FALL acute pelvic and right hip pain status post fall COMPARISON: None available TECHNIQUE: AP view of the pelvis with 2 views of the right hip and 2 views of the right femur FINDINGS: PELVIS: Bones appear mildly demineralized. Moderate degenerative changes about the bilateral femoral acetabular joints. Peripheral vascular disease with phleboliths of the pelvis. Multilevel degenerative changes about the lower lumbar spine. No acute fracture or dislocation. FEMUR: No acute fracture or dislocation. Imaged right hemipelvis appears intact. Right knee arthroplasty changes. Moderate soft tissue swelling about the knee with soft tissue prominence of the popliteal fossa displacing adjacent peripherally calcified arterial structures. IMPRESSION: 1. No acute fracture or dislocation. 2. Degenerative changes as above with right knee arthroplasty. 3. Soft tissue swelling about the knee with soft tissue prominence of the popliteal fossa displacing adjacent calcified arterial structures. Posttraumatic etiology and/or Mary's cyst are differential considerations. Correlate with clinical exam. The above report was generated using voice recognition software. It may contain grammatical, syntax or spelling errors. Electronically signed by: Rohan Stiles M.D. 12/25/2017 9:44 PM Dictated Date/Time: 12/25/2017 9:40 PM
--- NOTE | 2017-12-25 21:47 | DIAGNOSTIC IMAGING REPORT ---
L KNEE 1 OR 2 VIEWS ROUTINE HISTORY: 77 years-old Male trauma acute left knee pain status post trauma COMPARISON: None available TECHNIQUE: 2 views of the left knee FINDINGS: Bones are mildly demineralized. Tricompartmental osteoarthritis, moderate within the lateral compartment and severe is in the medial and patellofemoral compartments. Chondrocalcinosis. Ossifications are noted within the suprapatellar tissues measuring up to 1.6 cm. Trace joint effusion. Peripheral arterial disease. Surgical clips project over the popliteal tissues. No acute fracture or dislocation. IMPRESSION: 1. No acute fracture or dislocation. 2. Tricompartmental osteoarthritis with chondrocalcinosis, trace joint effusion and suspected intra-articular loose bodies. 3. Peripheral arterial disease. The above report was generated using voice recognition software. It may contain grammatical, syntax or spelling errors. Electronically signed by: Rohan Stiles M.D. 12/25/2017 9:46 PM Dictated Date/Time: 12/25/2017 9:44 PM
--- NOTE | 2017-12-25 21:56 | DIAGNOSTIC IMAGING REPORT ---
CHEST ONE VIEW PORTABLE HISTORY: 77 years-old Male trauma, falls acute chest trauma status post fall COMPARISON: Chest radiograph 01/24/2016 TECHNIQUE: Portable AP view of the chest FINDINGS: Cardiac silhouette is moderately enlarged. Left subclavian pacer/AICD appears unchanged. Coronary arterial stent graft noted. Prior median sternotomy. No pneumothorax. Small bilateral pleural effusions with pulmonary vascular congestion and bilateral mixed interstitial and alveolar opacities. Lungs are hypoinflated. Cholecystectomy clips are noted. Degenerative changes of the shoulders and spine. IMPRESSION: 1. Cardiomegaly with bilateral mixed interstitial and alveolar opacities suggesting pulmonary edema with superimposed pneumonia difficult to exclude.. 2. Small bilateral pleural effusions. The above report was generated using voice recognition software. It may contain grammatical, syntax or spelling errors. Electronically signed by: Rohan Stiles M.D. 12/25/2017 9:55 PM Dictated Date/Time: 12/25/2017 9:46 PM
[2017-12-25] MEDS ORDERED: FUROSEMIDE 40 MG/4 ML VIAL IV STA (22:10)
[2017-12-25] MEDS ORDERED: NITR0.1S TL (23:06)
[2017-12-25] MEDS ORDERED: SYN137 PO (23:06)
[2017-12-25] MEDS ORDERED: TAMS0.4C38 PO (23:06)
[2017-12-25] MEDS ORDERED: RANI150T2 PO (23:06)
[2017-12-25] MEDS ORDERED: MOME6000 NAE (23:06)
[2017-12-25] MEDS ORDERED: MYR25 PO (23:06)
[2017-12-25] MEDS ORDERED: NRN100 PO (23:15)
[2017-12-25] MEDS ORDERED: FURO-85 PO (23:15)
[2017-12-25] MEDS ORDERED: LORA0.5T12 PO (23:15)
[2017-12-25] MEDS ORDERED: ERGO500011 PO (23:15)
[2017-12-25] MEDS ORDERED: FLV1 PO (23:15)
[2017-12-25] MEDS ORDERED: PRAM1TAB10 PO (23:15)
--- NOTE | 2017-12-25 23:28 | History and Physical ---
History & Physical Date & Time of Service: December 25, 2017 at 23:28 Chief Complaint: Weakness Primary Care Physician: Gavin Laboy III, CRNP History of Present Illness Source: patient 77-year-old male with a past medical history of atrial fibrillation, chronic kidney disease, cardiomyopathy, CHF, hypertension, anemia presented to the ER with complaints of weakness and frequent falls. The patient states that he has been very weak and has had multiple falls within the last few weeks and had 2 falls today. He denies any lightheadedness/dizziness/palpitations/chest pain prior to the fall. He denies losing consciousness and states that his falls have been due to loss of balance. He lives with his significant other and uses an electric chair at home. Denies any chest pain, shortness of breath currently complains of some soreness in his right thigh area above his knee. Past Medical/Surgical History Medical Problems: (1) A-fib (2) Acute on chronic renal insufficiency (3) ROLANDO (acute kidney injury) (4) Ambulatory dysfunction (5) Anemia (6) Cardiomyopathy (7) CHF (congestive heart failure) (8) Chronic renal disease (9) Diabetes mellitus, new onset (10) Frequent falls (11) Hypertension (12) Infected pilonidal cyst (13) Pacemaker (14) Physical deconditioning Surgical Problems: (1) H/O heart artery stent (2) History of cholecystectomy (3) History of hernia repair (4) History of open heart surgery (5) Knee joint replacement status Family History Cancer Heart disease Hypertension Kidney stones Social History Smoking Status: Former Smoker Smokeless Tobacco Use: No Alcohol Use: none Drug Use: none Marital Status: Occupational Status: retired Immunizations History of Influenza Vaccine: Unknown History of Tetanus Vaccine?: Unknown History of Pneumococcal: Unknown History of Hepatitis B Vaccine: Unknown Allergies Coded Allergies: Zolpidem (Verified Allergy, Unknown, UNKN, 11/17/17) Home Medications Scheduled Amiodarone HCl (Amiodarone HCl), 200 MG PO QAM Aspirin (Aspirin Chewable), 81 MG PO QPM Atorvastatin (Lipitor), 80 MG PO QAM Bupropion Hcl (Wellbutrin Sr), 150 MG PO BID Carvedilol (Coreg), 6.25 MG PO BID Docusate Sodium (Colace), 1 CAP PO DAILY Ergocalciferol (Vitamin D 30027 Unit), 50,000 UNITS PO WK Finasteride (Proscar), 5 MG PO HS Folic Acid (Folvite), 1 MG PO QAM Gabapentin (Gabapentin), 200 MG PO BID Isosorbide Mononitrate (Isosorbide Mononitrate ER), 1 TAB PO DAILY Levothyroxine Sodium (Levothyroxine Sodium), 137 MCG PO QAM Lorazepam (Lorazepam), 0.5 MG PO QPM Magnesium Oxide (Mag-Ox), 400 MG PO QAM Mirabegron (Myrbetriq Er), 25 MG PO DAILY Nitroglycerin (Nitroglycerin Lingual), 1 SPRAYS TL UD Oxybutynin Chloride (Ditropan), 5 MG PO BID Polyethylene Glycol 3350 (Miralax), 17 GM PO QAM Pramipexole Dihydrochloride (Pramipexole Dihydrochlori), 1 MG PO DAILY Ramipril (Ramipril), 1 CAP PO HS Ranitidine Hcl (Zantac), 2 TAB PO BID Ropinirole (Requip), 2 TAB PO BID Tamsulosin Hcl (Flomax), 0.4 MG PO BID Scheduled PRN Hydrocodone/Acetaminophen 7.5MG/325MG ([place] 7.5MG/325MG), 1-2 TABS PO Q4 PRN for Pain Mometasone Furoate (Nasal) (Mometasone Furoate), 2 SPRAYS ALISON DAILY PRN for Nasal Congestion Miscellaneous Medications Furosemide (Lasix), 20 MG PO Review of Systems Constitutional: + weakness, No fever, No chills Eyes: No worsening of vision ENT: No hearing loss Respiratory: No cough, No sputum, No shortness of breath Cardiovascular: No chest pain, No orthopnea Abdomen: No pain, No nausea, No vomiting Musculoskeletal: + muscle pain (Right thigh), No joint pain Genitourinary - Male: No hematuria, No dysuria, No urinary frequency Neurologic: No memory loss, No paralysis, No weakness Psychiatric: No depression symptoms Endocrine: No fatigue Hematologic / Lymphatic: No abnormal bleeding/bruising Integumentary: No rash Physical Exam Vital Signs Date Time Temp Pulse Resp B/P (MAP) Pulse Ox O2 Delivery O2 Flow Rate FiO2 12/25/17 22:25 65 14 154/83 91 Room Air 12/25/17 21:36 61 20 155/86 92 Room Air 12/25/17 20:38 65 12/25/17 20:32 62 19 151/76 93 Room Air 12/25/17 20:27 93 Room Air 12/25/17 19:14 36.4 64 16 154/76 92 Room Air General Appearance: WD/WN, no apparent distress Eyes: normal inspection ENT: hearing grossly normal Neck: supple Respiratory/Chest: lungs clear, no respiratory distress, + crackles Cardiovascular: + irregularly irregular Abdomen/GI: normal bowel sounds, non tender, soft Extremities/Musculoskelatal: + pedal edema (Bilaterally) Neurologic/Psych: alert, normal mood/affect, oriented x 3 Diagnostics Laboratory Results Results Past 24 Hours Test 12/25/17 20:20 12/25/17 20:50 Range/Units White Blood Count 4.84 4.8-10.8 K/uL Red Blood Count 3.58 4.7-6.1 M/uL Hemoglobin 10.8 14.0-18.0 g/dL Hematocrit 33.4 42-52 % Mean Corpuscular Volume 93.3 80-100 fL Mean Corpuscular Hemoglobin 30.2 25-34 pg Mean Corpuscular Hemoglobin Concent 32.3 32-36 g/dl Platelet Count 162 130-400 K/uL Mean Platelet Volume 9.2 7.4-10.4 fL Neutrophils (%) (Auto) 71.7 % Lymphocytes (%) (Auto) 16.5 % Monocytes (%) (Auto) 7.9 % Eosinophils (%) (Auto) 3.3 % Basophils (%) (Auto) 0.6 % Neutrophils # (Auto) 3.47 1.4-6.5 K/uL Lymphocytes # (Auto) 0.80 1.2-3.4 K/uL Monocytes # (Auto) 0.38 0.11-0.59 K/uL Eosinophils # (Auto) 0.16 0-0.5 K/uL Basophils # (Auto) 0.03 0-0.2 K/uL RDW Standard Deviation 57.5 36.4-46.3 fL RDW Coefficient of Variation 16.6 11.5-14.5 % Immature Granulocyte % (Auto) 0.0 % Immature Granulocyte # (Auto) 0.00 0.00-0.02 K/uL Prothrombin Time 12.1 9.0-12.0 SECONDS Prothromb Time International Ratio 1.2 0.9-1.1 Sodium Level 140 136-145 mmol/L Potassium Level 4.1 3.5-5.1 mmol/L Chloride Level 107 98-107 mmol/L Carbon Dioxide Level 29 21-32 mmol/L Anion Gap 4.0 3-11 mmol/L Blood Urea Nitrogen 26 7-18 mg/dl Creatinine 1.51 0.60-1.40 mg/dl Est Creatinine Clear Calc Drug Dose 44.4 ml/min Estimated GFR () 51.6 Estimated GFR (Non- 44.5 BUN/Creatinine Ratio 17.2 10-20 Random Glucose 62 70-99 mg/dl Calcium Level 8.8 8.5-10.1 mg/dl Magnesium Level 1.7 1.8-2.4 mg/dl Total Bilirubin 1.1 0.2-1 mg/dl Aspartate Amino Transf (AST/SGOT) 53 15-37 U/L Alanine Aminotransferase (ALT/SGPT) 29 12-78 U/L Alkaline Phosphatase 194 45-117 U/L Troponin I < 0.015 0-0.045 ng/ml Pro-B-Type Natriuretic Peptide 06097 0-900 pg/ml Total Protein 7.3 6.4-8.2 gm/dl Albumin 2.7 3.4-5.0 gm/dl Globulin 4.6 2.5-4.0 gm/dl Albumin/Globulin Ratio 0.6 0.9-2 Urine Color YELLOW Urine Appearance CLEAR CLEAR Urine pH 6.0 4.5-7.5 Urine Specific [place] 1.020 1.000-1.030 Urine Protein NEG NEG Urine Glucose (UA) NEG NEG Urine Ketones NEG NEG Urine Occult Blood NEG NEG Urine Nitrite NEG NEG Urine Bilirubin NEG NEG Urine Urobilinogen NEG NEG Urine Leukocyte Esterase NEG NEG Diagnostic Radiology L KNEE 1 OR 2 VIEWS ROUTINE HISTORY: 77 years-old Male trauma acute left knee pain status post trauma COMPARISON: None available TECHNIQUE: 2 views of the left knee FINDINGS: Bones are mildly demineralized. Tricompartmental osteoarthritis, moderate within the lateral compartment and severe is in the medial and patellofemoral compartments. Chondrocalcinosis. Ossifications are noted within the suprapatellar tissues measuring up to 1.6 cm. Trace joint effusion. Peripheral arterial disease. Surgical clips project over the popliteal tissues. No acute fracture or dislocation. IMPRESSION: 1. No acute fracture or dislocation. 2. Tricompartmental osteoarthritis with chondrocalcinosis, trace joint effusion and suspected intra-articular loose bodies. 3. Peripheral arterial disease. The above report was generated using voice recognition software. It may contain grammatical, syntax or spelling errors. Electronically signed by: Rohan Stiles M.D. 12/25/2017 9:46 PM Dictated Date/Time: 12/25/2017 9:44 PM [~ rep ct add3]] HEAD WITHOUT CONTRAST (CT) CLINICAL HISTORY: 77 years-old Male with trauma, fall. Acute head injury status post fall TECHNIQUE: Multiple axial CT images of the head were obtained without contrast. A dose lowering technique was utilized adhering to the principles of ALARA. COMPARISON: CT cervical spine of same day, CT head 05/27/2017. FINDINGS: No acute intracranial hemorrhage, midline shift, intracranial mass, hydrocephalus, territorial ischemia or abnormal extra-axial collection. Moderate atrophy with ex vacuo ventriculomegaly. Moderate degree of low-attenuation within the periventricular white matter suggests chronic microvascular ischemic changes. The calvarium is intact. The paranasal sinuses, mastoid air cells, and middle ear cavities are clear. IMPRESSION: No acute intracranial abnormality. The above report was generated using voice recognition software. It may contain grammatical, syntax or spelling errors. Electronically signed by: Rohan Stiles M.D. 12/25/2017 9:15 PM Dictated Date/Time: 12/25/2017 9:12 PM R PELVIS/UNILATERAL HIP 2-3VIEWS, R FEMUR 2 VIEWS ROUTINE HISTORY: 77 years-old Male TRAUMA, FALL acute pelvic and right hip pain status post fall COMPARISON: None available TECHNIQUE: AP view of the pelvis with 2 views of the right hip and 2 views of the right femur FINDINGS: PELVIS: Bones appear mildly demineralized. Moderate degenerative changes about the bilateral femoral acetabular joints. Peripheral vascular disease with phleboliths of the pelvis. Multilevel degenerative changes about the lower lumbar spine. No acute fracture or dislocation. FEMUR: No acute fracture or dislocation. Imaged right hemipelvis appears intact. Right knee arthroplasty changes. Moderate soft tissue swelling about the knee with soft tissue prominence of the popliteal fossa displacing adjacent peripherally calcified arterial structures. IMPRESSION: 1. No acute fracture or dislocation. 2. Degenerative changes as above with right knee arthroplasty. 3. Soft tissue swelling about the knee with soft tissue prominence of the popliteal fossa displacing adjacent calcified arterial structures. Posttraumatic etiology and/or Mary's cyst are differential considerations. Correlate with clinical exam. The above report was generated using voice recognition software. It may contain grammatical, syntax or spelling errors. Electronically signed by: Rohan Stiles M.D. 12/25/2017 9:44 PM Dictated Date/Time: 12/25/2017 9:40 PM CHEST ONE VIEW PORTABLE HISTORY: 77 years-old Male trauma, falls acute chest trauma status post fall COMPARISON: Chest radiograph 01/24/2016 TECHNIQUE: Portable AP view of the chest FINDINGS: Cardiac silhouette is moderately enlarged. Left subclavian pacer/AICD appears unchanged. Coronary arterial stent graft noted. Prior median sternotomy. No pneumothorax. Small bilateral pleural effusions with pulmonary vascular congestion and bilateral mixed interstitial and alveolar opacities. Lungs are hypoinflated. Cholecystectomy clips are noted. Degenerative changes of the shoulders and spine. IMPRESSION: 1. Cardiomegaly with bilateral mixed interstitial and alveolar opacities suggesting pulmonary edema with superimposed pneumonia difficult to exclude.. 2. Small bilateral pleural effusions. The above report was generated using voice recognition software. It may contain grammatical, syntax or spelling errors. Electronically signed by: Rohan Stiles M.D. 12/25/2017 9:55 PM Dictated Date/Time: 12/25/2017 9:46 PM CERVICAL SPINE W/O CT DOSE: 1320.10 mGy.cm CLINICAL HISTORY: 77 years-old Male with trauma, fall. Acute neck injury status post fall COMPARISON: CT head of same day, CT cervical spine 05/27/2017 TECHNIQUE: Multiple axial CT images of the cervical spine were obtained without contrast. A dose lowering technique was utilized adhering to the principles of ALARA. FINDINGS: No acute cervical spine fracture or subluxation. Mastoid air cells appear clear. The bones appear mildly demineralized. Severe multilevel intervertebral disc space narrowing with prominent endplate spurring and moderate to severe facet arthrosis. 3 mm anterolisthesis C2 on C3 is unchanged secondary to severe left-sided facet disease at this level. Partially calcified pannus is noted posterior to the odontoid process. Multilevel large posterior disc osteophyte complex formations are noted causing varying degrees of central canal and foraminal narrowing. Severe foraminal stenosis is seen at several levels. There is at least moderate central canal stenosis seen at several levels. Evaluation of the central canal and neuroforamina would be better assessed by MRI. Left subclavian pacer wires are partially imaged. No focal abnormality of the lung apices. Dense atherosclerosis of the carotid bulbs. IMPRESSION: No acute cervical spine fracture or subluxation. The above report was generated using voice recognition software. It may contain grammatical, syntax or spelling errors. Electronically signed by: Rohan Stiles M.D. 12/25/2017 9:23 PM Dictated Date/Time: 12/25/2017 9:18 PM R PELVIS/UNILATERAL HIP 2-3VIEWS, R FEMUR 2 VIEWS ROUTINE HISTORY: 77 years-old Male TRAUMA, FALL acute pelvic and right hip pain status post fall COMPARISON: None available TECHNIQUE: AP view of the pelvis with 2 views of the right hip and 2 views of the right femur FINDINGS: PELVIS: Bones appear mildly demineralized. Moderate degenerative changes about the bilateral femoral acetabular joints. Peripheral vascular disease with phleboliths of the pelvis. Multilevel degenerative changes about the lower lumbar spine. No acute fracture or dislocation. FEMUR: No acute fracture or dislocation. Imaged right hemipelvis appears intact. Right knee arthroplasty changes. Moderate soft tissue swelling about the knee with soft tissue prominence of the popliteal fossa displacing adjacent peripherally calcified arterial structures. IMPRESSION: 1. No acute fracture or dislocation. 2. Degenerative changes as above with right knee arthroplasty. 3. Soft tissue swelling about the knee with soft tissue prominence of the popliteal fossa displacing adjacent calcified arterial structures. Posttraumatic etiology and/or Mary's cyst are differential considerations. Correlate with clinical exam. The above report was generated using voice recognition software. It may contain grammatical, syntax or spelling errors. Electronically signed by: Rohan Stiles M.D. 12/25/2017 9:44 PM Dictated Date/Time: 12/25/2017 9:40 PM Impression Assessment and Plan 77-year-old male with a past medical history of atrial fibrillation, chronic kidney disease, cardiomyopathy, CHF, hypertension, anemia presented to the ER with complaints of weakness and frequent falls. Frequent falls/ambulatory dysfunction: -PT/OT Right thigh/above the knee pain:? Muscle contusion X-ray femur: All Soft tissue swelling about the knee with soft tissue prominence of the popliteal fossa displacing adjacent calcified arterial structures. Posttraumatic etiology and/or Mary's cyst are differential considerations. -Consider ultrasound for further eval Atrial fibrillation/CAD/CHF/HTN Continue amiodarone, aspirin, Coreg, ramipril, Imdur CKD: -Creatinine at 1.5 which is baseline -Monitor creatinine Restless leg syndrome : Continue Requip Hypothyroidism: -Continue Synthroid BPH : -continue Flomax and oxybutynin Anemia: -Continue B12 and folic acid Full code DVT prophylaxis: SCDs Heparin subcu Disposition: Admitted to [facility] Attending addendum: I have physically seen this patient, have supervised the medical residents activities, and agree with the H&P unless as otherwise noted. Assessment and Plan: Frequent falls/ambulatory dysfunction/abnormal knee x-ray-- Consult PT/OT/social science professor. Order lower extremity ultrasound to further characterize question of Mary's cyst. CAD/hypertension/atrial fibrillation/CHF-- Continue aspirin, amiodarone, carvedilol, ramipril and Imdur. CKD-- Presently a baseline creatinine of 1.5. Restless leg syndrome-- Continue ropinirole. Remainder of orders as above. Advanced Directives Existing Advance Directive: No Existing Living Will: No Existing Power of Doll Dresser: No Resuscitation Status Full code VTE Prophylaxis Will order VTE Prophylaxis: Yes Resident Tracking Resident Involvement: Resident Care Provided Care Provided: Adult Hospital Medicine
[2017-12-25] MEDS ORDERED: MAGNESIUM HYDROXIDE SUSP 30 ML UDC PO PRN (23:30)
[2017-12-25] MEDS ORDERED: POLYETHYLENE (MIRALAX) 17 GM PACK PO PRN (23:30)
[2017-12-25] MEDS ORDERED: ACETAMINOPHEN 325 MG TAB PO PRN (23:30)
[2017-12-25] MEDS ORDERED: ONDANSETRON INJ 2 MG/ML 2 ML VIAL IV PRN (23:30)
[2017-12-25] MEDS ORDERED: FLUTICASONE PROPIONATE NA SPR 16 GM BTL NAE PRN (23:30)
[2017-12-26 01:08] VITALS: BP 135/75; PULSE 64; TEMP 36.5; O2SAT 98; Ht 162.6 cm; Wt 97.0 kg
[2017-12-26] MEDS: HEPARIN SOD 5000 UNIT/0.5 ML CARP SQ SCH ×3 (05:50→21:36)
[2017-12-26] MEDS: LEVOTHYROXINE 137 MCG TAB PO SCH (05:51)
[2017-12-26 06:00] LABS: HEMATOCRIT 33.2 % (42-52); HEMOGLOBIN 10.7 g/dL (14.0-18.0); MEAN CELL VOLUME 92.7 fL (80-100); MEAN CORPUSCULAR HEMOGLOBIN 29.9 pg (25-34); MEAN CORPUSCULAR HGB CONC 32.2 g/dl (32-36); MEAN PLATELET VOLUME 9.4 fL (7.4-10.4); PLATELET COUNT 157 K/uL (130-400); RED CELL DISTRIBUTION WIDTH CV 16.6 % (11.5-14.5); RED CELL DISTRIBUTION WIDTH SD 56.7 fL (36.4-46.3); WHITE BLOOD COUNT 5.96 K/uL (4.8-10.8)
[2017-12-26 06:37] LABS: CALCIUM 8.7 mg/dl (8.5-10.1); CREATININE 1.43 mg/dl (0.60-1.40); POTASSIUM 3.7 mmol/L (3.5-5.1)
[2017-12-26] MEDS: BuPROPion SR 150 MG TABCR PO SCH ×2 (07:33→21:31)
[2017-12-26] MEDS: MIRABEGRON ER 25 MG TAB PO SCH (07:33)
[2017-12-26] MEDS: PRAMIPEXOLE DIHYDROCHLORIDE 0.5 MG TAB PO SCH (07:33)
[2017-12-26] MEDS: POLYETHYLENE (MIRALAX) 17 GM PACK PO SCH ×2 (07:33→07:37)
[2017-12-26] MEDS: ROPINIROLE HCL 1 MG TAB PO SCH ×2 (07:34→21:30)
[2017-12-26] MEDS: OXYBUTYNIN CHLORIDE 5 MG TAB PO SCH ×2 (07:34→21:29)
[2017-12-26] MEDS: ISOSORBIDE MONONITRATE 30 MG TABCR PO SCH (07:34)
[2017-12-26] MEDS: RANITIDINE HCL 150 MG TAB PO SCH ×2 (07:34→21:30)
[2017-12-26] MEDS: AMIODARONE 200 MG TAB PO SCH (07:34)
[2017-12-26] MEDS: CARVEDILOL 6.25 MG TAB PO SCH ×2 (07:34→21:31)
[2017-12-26] MEDS: GABAPENTIN 100 MG CAP PO SCH ×2 (07:35→21:28)
[2017-12-26] MEDS: MAGNESIUM OXIDE 400 MG TAB PO SCH (07:35)
[2017-12-26] MEDS: ATORVASTATIN 40 MG TAB PO SCH (07:35)
[2017-12-26] MEDS: DOCUSATE SODIUM 100 MG CAP PO SCH ×2 (07:35→07:37)
[2017-12-26 07:39] VITALS: BP 179/93; PULSE 66; TEMP 36.6; O2SAT 93
[2017-12-26 08:00] VITALS: O2SAT 93
[2017-12-26 09:20] VITALS: BP 120/67
--- NOTE | 2017-12-26 10:38 | Family Medicine Progress Note ---
Progress Note Date of Service December 26, 2017. Subjective Pt evaluation today including: conversation w/ patient, physical exam, chart review, lab review Voiding: no voiding problems, no incontinence Patients note feeling week for the last few weeks. He has a partner at home who also has ambulatory dysfunction so he does not want to rely on her to help him States that if he needs to go somewhere, would like to go to [place] Denies any fevers chills or sweats in recent weeks. Additional Comments: A 10 point review of systems was negative unless stated above. Medications Current Inpatient Medications Medications (Trade) Dose Ordered Sig/[place] Route Start Time Stop Time Status Last Admin Dose Admin Acetaminophen (Tylenol Tab) 650 mg Q4H PRN PO 12/25/17 23:30 01/24/18 23:29 Magnesium Hydroxide (Milk Of Magnesia Susp) 30 ml Q6H PRN PO 12/25/17 23:30 01/24/18 23:29 Polyethylene (Miralax Powder Packet) 17 gm DAILY PRN PO 12/25/17 23:30 01/24/18 23:29 Ondansetron HCl (Zofran Inj) 4 mg Q6H PRN IV 12/25/17 23:30 01/24/18 23:29 Amiodarone HCl (Cordarone Tab) 200 mg QAM PO 12/26/17 08:00 01/25/18 08:59 12/26/17 07:34 200 MG Aspirin (Aspirin Chew) 81 mg QPM PO 12/26/17 21:00 01/25/18 20:59 Atorvastatin Calcium (Lipitor Tab) 80 mg QAM PO 12/26/17 08:00 01/25/18 08:59 12/26/17 07:35 80 MG Bupropion HCl (Wellbutrin-Sr Tab) 150 mg BID PO 12/26/17 08:00 01/25/18 08:59 12/26/17 07:33 150 MG Carvedilol (Coreg Tab) 6.25 mg BID PO 12/26/17 08:00 01/25/18 08:59 12/26/17 07:34 6.25 MG Docusate Sodium (coLACE CAP) 100 mg DAILY PO 12/26/17 08:00 01/25/18 08:59 Finasteride (Proscar Tab) 5 mg HS PO 12/26/17 21:00 01/25/18 20:59 Folic Acid (Folvite Tab) 1 mg QAM PO 12/26/17 08:00 01/25/18 08:59 12/26/17 07:34 1 MG Gabapentin (Neurontin Cap) 200 mg BID PO 12/26/17 08:00 01/25/18 08:59 12/26/17 07:35 200 MG Isosorbide Mononitrate (Imdur Ext Rel Tab) 30 mg DAILY PO 12/26/17 08:00 01/25/18 08:59 12/26/17 07:34 30 MG Levothyroxine Sodium (Synthroid Tab) 137 mcg DAILYBB PO 12/26/17 06:30 01/25/18 06:59 12/26/17 05:51 137 MCG Magnesium Oxide (Mag-Ox Tab) 400 mg QAM PO 12/26/17 08:00 01/25/18 08:59 12/26/17 07:35 400 MG Mirabegron (Myrbetriq Er) 25 mg DAILY PO 12/26/17 08:00 01/25/18 08:59 12/26/17 07:33 25 MG Oxybutynin Chloride (Ditropan Tab) 5 mg BID PO 12/26/17 08:00 01/25/18 08:59 12/26/17 07:34 5 MG Ranitidine HCl (zANTac TAB) 300 mg BID PO 12/26/17 08:00 01/25/18 08:59 12/26/17 07:34 300 MG Ropinirole HCl (Requip Tab) 1 mg BID PO 12/26/17 08:00 01/25/18 08:59 12/26/17 07:34 1 MG Fluticasone Propionate (Flonase Nasal [place]) 2 sprays DAILY PRN ALISON 12/25/17 23:30 01/24/18 23:29 Polyethylene (Miralax Powder Packet) 17 gm QAM PO 12/26/17 08:00 01/25/18 08:59 Pramipexole Dihydrochloride (miraPEX TAB) 1 mg DAILY PO 12/26/17 08:00 01/25/18 08:59 12/26/17 07:33 1 MG Enalapril Maleate (Vasotec Tab) 10 mg HS PO 12/26/17 21:00 6/4/18 20:59 Heparin Sodium (Porcine) (Heparin Sq 5000 Unit/0.5ml) 5,000 unit Q8 SQ 12/26/17 06:00 01/25/18 05:59 12/26/17 05:50 5,000 UNIT Objective Vital Signs Date Time Temp Pulse Resp B/P (MAP) Pulse Ox O2 Delivery O2 Flow Rate FiO2 12/26/17 09:20 120/67 (84) 12/26/17 08:00 93 Room Air 12/26/17 07:39 36.6 66 16 179/93 (121) 93 12/26/17 01:08 36.5 64 20 135/75 98 Room Air 12/26/17 00:00 64 18 134/75 92 Room Air 12/25/17 23:31 16 131/73 92 Room Air 12/25/17 23:00 65 22 149/76 91 Room Air 12/25/17 22:25 65 14 154/83 91 Room Air 12/25/17 21:36 61 20 155/86 92 Room Air 12/25/17 20:38 65 12/25/17 20:32 62 19 151/76 93 Room Air 12/25/17 20:27 93 Room Air 12/25/17 19:14 36.4 64 16 154/76 92 Room Air Physical Exam General Appearance: WD/WN, no apparent distress Eyes: normal inspection, EOMI ENT: normal ENT inspection, hearing grossly normal, pharynx normal Neck: supple, no adenopathy, no JVD Respiratory/Chest: lungs clear, no respiratory distress Cardiovascular: regular rate, rhythm, no gallop, no murmur Abdomen: normal bowel sounds, non tender, soft Extremities: non-tender, + swelling (bilateral; non-tender) Neurologic/Psychiatric: alert, normal mood/affect, oriented x 3 Skin: normal color, warm/dry, no rash Lymphatic: no adenopathy Laboratory Results Last 24 Hours Test 12/25/17 20:20 12/25/17 20:50 12/25/17 23:34 12/26/17 05:47 White Blood Count 4.84 K/uL 5.96 K/uL Red Blood Count 3.58 M/uL 3.58 M/uL Hemoglobin 10.8 g/dL 10.7 g/dL Hematocrit 33.4 % 33.2 % Mean Corpuscular Volume 93.3 fL 92.7 fL Mean Corpuscular Hemoglobin 30.2 pg 29.9 pg Mean Corpuscular Hemoglobin Concent 32.3 g/dl 32.2 g/dl Platelet Count 162 K/uL 157 K/uL Mean Platelet Volume 9.2 fL 9.4 fL Neutrophils (%) (Auto) 71.7 % Lymphocytes (%) (Auto) 16.5 % Monocytes (%) (Auto) 7.9 % Eosinophils (%) (Auto) 3.3 % Basophils (%) (Auto) 0.6 % Neutrophils # (Auto) 3.47 K/uL Lymphocytes # (Auto) 0.80 K/uL Monocytes # (Auto) 0.38 K/uL Eosinophils # (Auto) 0.16 K/uL Basophils # (Auto) 0.03 K/uL RDW Standard Deviation 57.5 fL 56.7 fL RDW Coefficient of Variation 16.6 % 16.6 % Immature Granulocyte % (Auto) 0.0 % Immature Granulocyte # (Auto) 0.00 K/uL Prothrombin Time 12.1 SECONDS Prothromb Time International Ratio 1.2 Sodium Level 140 mmol/L 140 mmol/L Potassium Level 4.1 mmol/L 3.7 mmol/L Chloride Level 107 mmol/L 105 mmol/L Carbon Dioxide Level 29 mmol/L 30 mmol/L Anion Gap 4.0 mmol/L 5.0 mmol/L Blood Urea Nitrogen 26 mg/dl 25 mg/dl Creatinine 1.51 mg/dl 1.43 mg/dl Est Creatinine Clear Calc Drug Dose 44.4 ml/min 46.9 ml/min Estimated GFR () 51.6 55.1 Estimated GFR (Non- 44.5 47.6 BUN/Creatinine Ratio 17.2 17.5 Random Glucose 62 mg/dl 61 mg/dl Calcium Level 8.8 mg/dl 8.7 mg/dl Magnesium Level 1.7 mg/dl Total Bilirubin 1.1 mg/dl Aspartate Amino Transf (AST/SGOT) 53 U/L Alanine Aminotransferase (ALT/SGPT) 29 U/L Alkaline Phosphatase 194 U/L Troponin I < 0.015 ng/ml Pro-B-Type Natriuretic Peptide 18607 pg/ml Total Protein 7.3 gm/dl Albumin 2.7 gm/dl Globulin 4.6 gm/dl Albumin/Globulin Ratio 0.6 Urine Color YELLOW Urine Appearance CLEAR Urine pH 6.0 Urine Specific [place] 1.020 Urine Protein NEG Urine Glucose (UA) NEG Urine Ketones NEG Urine Occult Blood NEG Urine Nitrite NEG Urine Bilirubin NEG Urine Urobilinogen NEG Urine Leukocyte Esterase NEG Bedside Glucose 101 mg/dl Test 12/26/17 10:03 Assessment and Plan 77 year old male with weakness and ambulatory dysfunction. Was admitted yesterday due to fall at home. - Ambulatory Dysfunction: Multiple imaging studies done without evidence of acute injury. Patient has possible congestion vs PNA on CT. Will order procalcitonin to evaluate for PNA. Given overall weakness and swelling in the legs there is also a consideration so an echocardiogram will be ordered. TSH to evaluate thyroid function. Patient requires intensive PT and OT evaluations to determine rehab needs once medically stable. - Hx of Atrial Fibrillation: Continue Amiodarone and Coreg. Not on anticoagulation at home but takes ASA 81 mg. Not on anticoagulation - Hx of Cardiomyopathy/CHF/CAD: ASA 81 mg, Atorvastatin, Coreg, Imdur and Enalapril. Will order echocardiogram as above. - CKD 3: Stable eGFR and Cr 1.45 - Hypothyroidism: Continue Levothyroxine. Will check TSH level to determine if thyroid contributing to current weakness. - Urinary Incontinence: Continue Oxybutinin and Mybetriq - Restless Leg: Continue Mirapex and Requip - DVT Prophylaxis: SCD, TEDs, Lovenox - Code Status: Level I Full Code - Disposition: Med/Surg. Anticipate need to for inpatient rehabilitation vs SNF. PT and OT consultations ordered Resident Physician Supervision Note: I interviewed and examined the patient. Discussed with Dr. Washington and agree with findings and plan as documented in the note. Any exceptions or clarifications are listed here: None Documented By: Say Pitts feeling weak but about the same R leg pain vitals noted nad fatigued appearing breathing unlabored tender medial thigh tracks along adductor muscles no clear masses weakness/fatigue -likely multifactorial root causes - w/u as above -treat root causes as they become apparent -PT/OT, mary to need rehab leg pain - ?underlying cause that also may be contributigin to his weakness or simply muscle contracture as an effect of his weakness - US and then further based on results otherwise as above Continued [facility] [place] stay due to: ambulation difficulties Discharge planning: uncertain
--- NOTE | 2017-12-26 16:26 | DIAGNOSTIC IMAGING REPORT ---
R VENOUS DOPP LOWER EXT UNILAT CLINICAL HISTORY: 77 years-old Male presenting with right leg and thigh pain; rule out DVT. TECHNIQUE: Real-time grayscale and color and spectral Doppler ultrasound imaging of the veins of the right lower extremity was performed. Compression and augmentation were also utilized. COMPARISON: None. FINDINGS: Right: Common femoral vein: Patent. Greater saphenous vein: Patent. Deep femoral vein: Patent. Femoral vein: Patent. Popliteal vein: Patent. Calf veins: Limited visualization secondary to subcutaneous edema. Other: 5.3 x 4.0 x 5.0 complex hypoechoic collection in the posterior distal thigh and popliteal fossa, which is avascular on color Doppler. The appearance is not characteristic of a popliteal cyst. IMPRESSION: 1. No evidence of deep venous thrombosis. 2. Complex mass in the posterior distal thigh and popliteal fossa. Soft tissue neoplasm cannot be excluded though this may represent a complex popliteal cyst or hematoma. Contrast-enhanced MR of the knee/thigh recommended for further evaluation. Electronically signed by: Misha Blanco M.D. 12/26/2017 4:24 PM Dictated Date/Time: 12/26/2017 4:23 PM
[2017-12-26 17:26] VITALS: BP 170/90; PULSE 55; TEMP 36.6; O2SAT 95
[2017-12-26] MEDS: FINASTERIDE 5 MG TAB PO SCH (21:29)
[2017-12-26] MEDS: ENALAPRIL MALEATE 10 MG TAB PO SCH (21:30)
[2017-12-26] MEDS: ASPIRIN 81 MG CHEW PO SCH (22:32)
[2017-12-26 23:27] VITALS: BP 137/73; PULSE 68; TEMP 36.6; O2SAT 91
[2017-12-27] MEDS: HEPARIN SOD 5000 UNIT/0.5 ML CARP SQ SCH ×3 (05:45→21:32)
[2017-12-27] MEDS: LEVOTHYROXINE 137 MCG TAB PO SCH (05:46)
[2017-12-27 06:31] LABS: HEMATOCRIT 33.1 % (42-52); HEMOGLOBIN 10.8 g/dL (14.0-18.0); MEAN CELL VOLUME 92.7 fL (80-100); MEAN CORPUSCULAR HEMOGLOBIN 30.3 pg (25-34); MEAN CORPUSCULAR HGB CONC 32.6 g/dl (32-36); MEAN PLATELET VOLUME 9.8 fL (7.4-10.4); PLATELET COUNT 169 K/uL (130-400); RED CELL DISTRIBUTION WIDTH CV 16.7 % (11.5-14.5); RED CELL DISTRIBUTION WIDTH SD 56.9 fL (36.4-46.3); WHITE BLOOD COUNT 5.04 K/uL (4.8-10.8)
[2017-12-27 07:01] LABS: CALCIUM 8.5 mg/dl (8.5-10.1); CREATININE 1.42 mg/dl (0.60-1.40); POTASSIUM 3.6 mmol/L (3.5-5.1)
[2017-12-27] MEDS: POLYETHYLENE (MIRALAX) 17 GM PACK PO SCH (08:00)
[2017-12-27] MEDS: DOCUSATE SODIUM 100 MG CAP PO SCH (08:00)
[2017-12-27 08:06] VITALS: BP 168/83; PULSE 61; TEMP 36.4; O2SAT 91
[2017-12-27 08:48] VITALS: BP 147/78; PULSE 60; O2SAT 92
[2017-12-27] MEDS: ROPINIROLE HCL 1 MG TAB PO SCH ×2 (08:49→19:47)
[2017-12-27] MEDS: OXYBUTYNIN CHLORIDE 5 MG TAB PO SCH ×2 (08:50→19:45)
[2017-12-27] MEDS: AMIODARONE 200 MG TAB PO SCH (08:50)
[2017-12-27] MEDS: GABAPENTIN 100 MG CAP PO SCH ×2 (08:50→19:46)
[2017-12-27] MEDS: PRAMIPEXOLE DIHYDROCHLORIDE 0.5 MG TAB PO SCH (08:50)
[2017-12-27] MEDS: MIRABEGRON ER 25 MG TAB PO SCH (08:50)
[2017-12-27] MEDS: MAGNESIUM OXIDE 400 MG TAB PO SCH (08:50)
[2017-12-27] MEDS: CARVEDILOL 6.25 MG TAB PO SCH ×2 (08:51→19:44)
[2017-12-27] MEDS: ISOSORBIDE MONONITRATE 30 MG TABCR PO SCH (08:51)
[2017-12-27] MEDS: BuPROPion SR 150 MG TABCR PO SCH ×2 (08:51→19:48)
[2017-12-27] MEDS: ATORVASTATIN 40 MG TAB PO SCH (08:51)
[2017-12-27] MEDS: RANITIDINE HCL 150 MG TAB PO SCH ×2 (08:52→19:49)
[2017-12-27] MEDS ORDERED: ACETYLCYSTEINE 600 MG CAP PO ONE ×2 (09:07→11:19)
[2017-12-27] MEDS ORDERED: OPTIRAY 320 IV PRN ×2 (09:15→11:30)
[2017-12-27] MEDS ORDERED: SODIUM CHLORIDE 0.9% 500ML 500 ML IV ONE (09:15)
--- NOTE | 2017-12-27 10:07 | Family Medicine Progress Note ---
Progress Note Date of Service December 27, 2017. Subjective Pt evaluation today including: conversation w/ patient, physical exam, chart review, lab review Pain: None Voiding: no voiding problems, no incontinence No complaints this morning Feels rested Notes slightly diminished appetite for several months No nursing concerns reported Additional Comments: A 10 point review of systems was negative unless stated above. Medications Current Inpatient Medications Medications (Trade) Dose Ordered Sig/[place] Route Start Time Stop Time Status Last Admin Dose Admin Acetaminophen (Tylenol Tab) 650 mg Q4H PRN PO 12/25/17 23:30 01/24/18 23:29 Magnesium Hydroxide (Milk Of Magnesia Susp) 30 ml Q6H PRN PO 12/25/17 23:30 01/24/18 23:29 Polyethylene (Miralax Powder Packet) 17 gm DAILY PRN PO 12/25/17 23:30 01/24/18 23:29 Ondansetron HCl (Zofran Inj) 4 mg Q6H PRN IV 12/25/17 23:30 01/24/18 23:29 Amiodarone HCl (Cordarone Tab) 200 mg QAM PO 12/26/17 08:00 01/25/18 08:59 12/27/17 08:50 200 MG Aspirin (Aspirin Chew) 81 mg QPM PO 12/26/17 21:00 01/25/18 20:59 12/26/17 22:32 81 MG Atorvastatin Calcium (Lipitor Tab) 80 mg QAM PO 12/26/17 08:00 01/25/18 08:59 12/27/17 08:51 80 MG Bupropion HCl (Wellbutrin-Sr Tab) 150 mg BID PO 12/26/17 08:00 01/25/18 08:59 12/27/17 08:51 150 MG Carvedilol (Coreg Tab) 6.25 mg BID PO 12/26/17 08:00 01/25/18 08:59 12/27/17 08:51 6.25 MG Docusate Sodium (coLACE CAP) 100 mg DAILY PO 12/26/17 08:00 01/25/18 08:59 Finasteride (Proscar Tab) 5 mg HS PO 12/26/17 21:00 01/25/18 20:59 12/26/17 21:29 5 MG Folic Acid (Folvite Tab) 1 mg QAM PO 12/26/17 08:00 01/25/18 08:59 12/27/17 08:51 1 MG Gabapentin (Neurontin Cap) 200 mg BID PO 12/26/17 08:00 01/25/18 08:59 12/27/17 08:50 200 MG Isosorbide Mononitrate (Imdur Ext Rel Tab) 30 mg DAILY PO 12/26/17 08:00 01/25/18 08:59 12/27/17 08:51 30 MG Levothyroxine Sodium (Synthroid Tab) 137 mcg DAILYBB PO 12/26/17 06:30 01/25/18 06:59 12/27/17 05:46 137 MCG Magnesium Oxide (Mag-Ox Tab) 400 mg QAM PO 12/26/17 08:00 01/25/18 08:59 12/27/17 08:50 400 MG Mirabegron (Myrbetriq Er) 25 mg DAILY PO 12/26/17 08:00 01/25/18 08:59 12/27/17 08:50 25 MG Oxybutynin Chloride (Ditropan Tab) 5 mg BID PO 12/26/17 08:00 01/25/18 08:59 12/27/17 08:50 5 MG Ranitidine HCl (zANTac TAB) 300 mg BID PO 12/26/17 08:00 01/25/18 08:59 12/27/17 08:52 300 MG Ropinirole HCl (Requip Tab) 1 mg BID PO 12/26/17 08:00 01/25/18 08:59 12/27/17 08:49 1 MG Fluticasone Propionate (Flonase Nasal [place]) 2 sprays DAILY PRN ALISON 12/25/17 23:30 01/24/18 23:29 Polyethylene (Miralax Powder Packet) 17 gm QAM PO 12/26/17 08:00 01/25/18 08:59 Pramipexole Dihydrochloride (miraPEX TAB) 1 mg DAILY PO 12/26/17 08:00 01/25/18 08:59 12/27/17 08:50 1 MG Enalapril Maleate (Vasotec Tab) 10 mg HS PO 12/26/17 21:00 01/25/18 20:59 12/26/17 21:30 10 MG Heparin Sodium (Porcine) (Heparin Sq 5000 Unit/0.5ml) 5,000 unit Q8 SQ 12/26/17 06:00 01/25/18 05:59 12/27/17 05:45 5,000 UNIT Objective Vital Signs Date Time Temp Pulse Resp B/P (MAP) Pulse Ox O2 Delivery O2 Flow Rate FiO2 12/27/17 08:48 60 147/78 (101) 92 Room Air 12/27/17 08:06 36.4 61 16 168/83 (111) 91 12/27/17 08:00 Room Air 12/27/17 00:10 Room Air 12/26/17 23:27 36.6 68 16 137/73 (94) 91 Room Air 12/26/17 17:26 36.6 55 16 170/90 (116) 95 Room Air 12/26/17 16:30 Room Air Physical Exam General Appearance: WD/WN, no apparent distress Eyes: normal inspection, EOMI ENT: hearing grossly normal, pharynx normal Neck: supple, no adenopathy, no JVD Respiratory/Chest: lungs clear, no respiratory distress Cardiovascular: regular rate, rhythm, no gallop, no murmur Abdomen: normal bowel sounds, non tender, soft Extremities: non-tender, no pedal edema, + pertinent finding (leg swelling signicantly improved) Neurologic/Psychiatric: alert, normal mood/affect, oriented x 3 Skin: normal color, warm/dry, no rash Lymphatic: no adenopathy Laboratory Results Last 24 Hours Test 12/26/17 10:03 12/26/17 11:47 12/26/17 17:02 12/26/17 20:18 Procalcitonin 0.11 ng/ml Bedside Glucose 70 mg/dl 91 mg/dl 91 mg/dl Test 12/27/17 05:39 12/27/17 08:08 White Blood Count 5.04 K/uL Red Blood Count 3.57 M/uL Hemoglobin 10.8 g/dL Hematocrit 33.1 % Mean Corpuscular Volume 92.7 fL Mean Corpuscular Hemoglobin 30.3 pg Mean Corpuscular Hemoglobin Concent 32.6 g/dl RDW Standard Deviation 56.9 fL RDW Coefficient of Variation 16.7 % Platelet Count 169 K/uL Mean Platelet Volume 9.8 fL Sodium Level 139 mmol/L Potassium Level 3.6 mmol/L Chloride Level 106 mmol/L Carbon Dioxide Level 30 mmol/L Anion Gap 3.0 mmol/L Blood Urea Nitrogen 23 mg/dl Creatinine 1.42 mg/dl Est Creatinine Clear Calc Drug Dose 47.3 ml/min Estimated GFR () 55.6 Estimated GFR (Non- 48.0 BUN/Creatinine Ratio 16.0 Random Glucose 71 mg/dl Calcium Level 8.5 mg/dl Vitamin B12 Level 466 pg/mL Thyroid Stimulating Hormone (TSH) 2.580 uIu/ml Bedside Glucose 71 mg/dl Assessment and Plan 77 year old male with weakness and ambulatory dysfunction. Admitted after fall at home and history of multiple falls for the past several weeks. - Ambulatory Dysfunction: Multiple imaging studies done without evidence of acute injury. Possible congestion on CT with negative pro-calcitonin makes PNA unlikely . Possible component of CHF with echocardiogram pending. TSH and B12 levels checked this AM and within normal limits. Possible with normal studies this is acute deconditioning and requires inpatient PT/OT with likely need for intensive rehabilitation. - Right distal calf/popliteal mass: Noted on U/S yesterday. Difficulty to characterize. U/S report recommends MRI with contrast. Patient has pacer. Will call junior media buyer to determine if MRI compatible. If not we can go with CT + contrast and provide hydration + Mucomyst given stable CKD. - Hx of Atrial Fibrillation: Continue Amiodarone and Coreg. Not on anticoagulation at home but takes ASA 81 mg. Not on anticoagulation - Hx of Cardiomyopathy/CHF/CAD: ASA 81 mg, Atorvastatin, Coreg, Imdur and Enalapril. Echocardiogram pending. - CKD 3: Stable eGFR around 45 and Cr 1.45 - Hypothyroidism: Continue Levothyroxine. TSH WNL - Urinary Incontinence: Continue Oxybutinin and Mybetriq - Restless Leg ?Parkinsons?: On Mirapex and Requip. Patient has not verbalized a diagnosis of Parkinsons but will be important to clarify as this could contribute to picture of slowly progressing ambulatory dysfunction. Would need to be evaluated for this formally as outpatient. - DVT Prophylaxis: SCD, TEDs, Lovenox - Code Status: Level I Full Code - Disposition: Med/Surg. Anticipate need to for inpatient rehabilitation vs SNF. PT and OT consultations ordered Resident Physician Supervision Note: I interviewed and examined the patient. Discussed with Dr. Washington and agree with findings and plan as documented in the note. Any exceptions or clarifications are listed here: None Documented By: Say Pitts feeling about the same, on and off delirious vitals noted nad fatigued appearing breathing unlabored off and on confused ( references a woman in the corner of the room but then realizes we're the only ones there) weakness/fatigue -likely multifactorial root causes - w/u as above -- but suspect that he's just overall more weak/frail at baseline than he realized and leg issues have led to more deconditioning than he realized -PT/OT, mary to need rehab -- ortho consult for R leg lesion if he has a "ceiling" with ability to participate in therapy leg lesion - see above. for now trial of PT/OT -- if unable to participate then consult ortho otherwise as above Continued [facility] stay due to: ambulation difficulties Discharge planning: uncertain
--- NOTE | 2017-12-27 13:25 | ECHOCARDIOGRAM REPORT ---
*NOTICE TO RECEIVING CONSTITUTION PARTY AGENCY This information is strictly Confidential and protected under [place] law. [place] law prohibits you from making any further disclosure of this information unless further disclosure is expressly permitted by the written consent of the person to whom it pertains or is authorized by law. A general authorization for the release of medical or other information is not sufficient for this purpose. Hospital accepts no responsibility if the information is made available to any other person, INCLUDING THE PATIENT. Interpretation Summary * Name: JENNIFER CAZARES Study Date: 12/27/2017 07:44 AM BP: 120/67 mmHg * Patient Location: C.4E\S\E409\S\1 HR: 66 * : 1940 (M/d/yyyy) Gender: Male Height: 64 in * Age: 77 yrs Ethnicity: [place] Weight: 213 lb * Ordering Physician: Davie Washington * Performed By: Stephany Acahrya RDCS * * Reason For Study: FATIGUE, WEAKNESS, LEG SWELLING, BILATERAL EFFUSIONS WITH HIGH BNP * BSA: 2.0 m2 * -- Conclusions -- * Left ventricular systolic function is severely reduced. * Akinetic posterior wall, inferior wall, inferoseptum, and apex. * Ejection Fraction = 25-30%. * There is mild to moderate mitral regurgitation. * There is mild tricuspid regurgitation. * Right ventricular systolic pressure is elevated at 50-60mmHg. Procedure Details * A complete two-dimensional transthoracic echocardiogram was performed (2D, M-mode, Doppler and color flow Doppler). Left Ventricle * The left ventricle is mildly dilated. * There is borderline concentric left ventricular hypertrophy. * Ejection Fraction = 25-30%. * Left ventricular systolic function is severely reduced. * Akinetic posterior wall, inferior wall, inferoseptum, and apex. Right Ventricle * The right ventricle is not well visualized. * The right ventricular systolic function is reduced as assessed by tricuspid annular plane systolic excursion (TAPSE) (TAPSE <1.6 cm). Atria * The left atrium is severely dilated. * Right atrium not well visualized. * There is no evidence of atrial septal defect, but resolution does not allow assessment for a patent foramen ovale. Mitral Valve * The mitral valve is grossly normal. * There is no mitral valve stenosis. * There is mild to moderate mitral regurgitation. Tricuspid Valve * The tricuspid valve is not well visualized, but is grossly normal. * There is mild tricuspid regurgitation. * Right ventricular systolic pressure is elevated at 50-60mmHg. Aortic Valve * The aortic valve is not well visualized. * The aortic valve opens well. * No hemodynamically significant valvular aortic stenosis. * There is no significant aortic regurgitation. Pulmonic Valve * The pulmonary valve is not well seen, but the Doppler examination is normal without significant regurgitation or stenosis. Great Vessels * The aortic root is normal size. * The pulmonary is not well visualized. Pericardium/Pleural * There is no pericardial effusion. Great Vessels * Dilated inferior vena cava with reduced collapsability with sniff indicates an elevated right atrial pressure of 15 mmHg Left Ventricular Diastolic Function * Diastolic dysfunction, Grade II (pseudonormalization pattern). MMode 2D Measurements and Calculations IVSd 1.3 cm IVSs 1.9 cm LVIDd 6.1 cm LVIDs 5.4 cm LVPWd 1.3 cm LVPWs 1.3 cm IVS/LVPW 1.0 FS 10.9 % EDV(Teich) 185.6 ml ESV(Teich) 142.5 ml EF(Teich) 23.2 % EDV(cubed) 224.9 ml ESV(cubed) 159.2 ml EF(cubed) 29.2 % % IVS thick 47.4 % % LVPW thick 3.0 % LV mass(C)d 352.2 grams LV mass(C)dI 175.3 grams/m\S\2 LV mass(C)s 404.6 grams LV mass(C)sI 201.4 grams/m\S\2 SV(Teich) 43.1 ml SI(Teich) 21.5 ml/m\S\2 SV(cubed) 65.7 ml SI(cubed) 32.7 ml/m\S\2 EPSS 2.2 cm ACS 1.6 cm LA dimension 5.3 cm asc Aorta Diam 3.2 cm LVOT diam 1.9 cm LVOT area 3.0 cm\S\2 LVAd ap4 48.6 cm\S\2 LVLd ap4 8.8 cm EDV(MOD-sp4) 220.5 ml EDV(sp4-el) 228.5 ml LVAs ap4 40.8 cm\S\2 LVLs ap4 8.2 cm ESV(MOD-sp4) 167.8 ml ESV(sp4-el) 172.8 ml EF(MOD-sp4) 23.9 % EF(sp4-el) 24.3 % SV(MOD-sp4) 52.7 ml SI(MOD-sp4) 26.2 ml/m\S\2 SV(sp4-el) 55.6 ml SI(sp4-el) 27.7 ml/m\S\2 Doppler Measurements and Calculations MV E max ana 60.8 cm/sec MV dec time 0.22 sec Ao V2 max 117.6 cm/sec Ao max PG 5.5 mmHg Ao max PG (full) 1.5 mmHg CHAPARRO(V,A) 2.5 cm\S\2 CHAPARRO(V,D) 2.5 cm\S\2 LV V1 max PG 4.0 mmHg LV V1 mean PG 1.5 mmHg LV V1 max 100.4 cm/sec LV V1 mean 54.2 cm/sec LV V1 VTI 21.6 cm MR max ana 370.1 cm/sec MR max PG 54.8 mmHg SV(LVOT) 63.9 ml SI(LVOT) 31.8 ml/m\S\2 PA V2 max 47.6 cm/sec PA max PG 0.90 mmHg TR max ana 322.4 cm/sec
--- NOTE | 2017-12-27 14:20 | DIAGNOSTIC IMAGING REPORT ---
R LOWER EXTREMITY WITH HISTORY: 77 years-old Male right dist thigh/popliteal mass; MRI contraind due to pacer follow-up study to assess right distal thigh/popliteal lesion COMPARISON: Duplex venous Doppler study 12/26/2017, right femur radiographs 12/25/2017 TECHNIQUE: Multiple axial CT images of the right lower extremity were obtained following the intravenous administration of 95 mL Optiray 320 IV contrast. Coronal and sagittal reformatted images were obtained from the axial data set and were submitted for review. A dose lowering technique was used consistent with the principals of SUKH. FINDINGS: Evaluation of the structures about the knee is limited secondary to artifact from right knee arthroplasty. Bones are mildly demineralized. Peripherally corticated subcortical lucencies about the posterior femur are noted measuring up to 2.6 cm within the medial femoral condyle nicely seen on image 898 series 3 and measuring up to 2.2 cm within the lateral femoral condyle. No acute fracture or dislocation. Moderate degenerative changes about the right femoral acetabular joint. No suspicious bony mass lesions identified. Trace free fluid within the pelvis of unknown etiology. Moderate mixed plaquing of the arterial structures about the right lower extremity without popliteal artery aneurysm identified. Moderate muscular atrophy. 6.6 cm lipoma of the semitendinosis musculature nicely seen on image 71 of series 300. Moderate mildly complex joint effusion. There is a multiloculated heterogeneous partially fluid attenuating structure of the popliteal fossa measuring up to 7.5 x 5.0 x 6.7 cm which is circumscribed without invasion into adjacent structures. IMPRESSION: 1. Multiloculated heterogeneous partially fluid attenuating structure of the popliteal fossa is partially obscured by streak artifact from right knee arthroplasty. 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 2. Subcortical lucencies about the femoral hardware as above are suspicious for underlying particle disease or remodeling changes. 3. No popliteal artery aneurysm identified. 4. Moderate joint effusion. 5. 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 6. No acute fracture or subluxation. The above report was generated using voice recognition software. It may contain grammatical, syntax or spelling errors. Electronically signed by: Rohan Stiles M.D. 12/27/2017 2:19 PM Dictated Date/Time: 12/27/2017 2:04 PM
[2017-12-27 16:06] VITALS: BP_SYST 149; BP_SYST 170; BP_DIAS 101; BP_DIAS 81; PULSE 55; TEMP 36.4; O2SAT 87
[2017-12-27 18:00] VITALS: O2SAT 87
[2017-12-27] MEDS: ACETYLCYSTEINE 600 MG CAP PO SCH (19:44)
[2017-12-27 19:56] VITALS: BP 135/76; PULSE 57; O2SAT 94
[2017-12-27] MEDS ORDERED: ACETYLCYSTEINE 600 MG CAP PO SCH (20:00)
[2017-12-27] MEDS: ENALAPRIL MALEATE 10 MG TAB PO SCH (21:33)
[2017-12-27] MEDS: ASPIRIN 81 MG CHEW PO SCH (21:33)
[2017-12-27] MEDS: FINASTERIDE 5 MG TAB PO SCH (21:34)
[2017-12-27 23:03] VITALS: BP 147/82; PULSE 55; TEMP 36.5; O2SAT 96
[2017-12-28] MEDS: LEVOTHYROXINE 137 MCG TAB PO SCH (06:12)
[2017-12-28] MEDS: HEPARIN SOD 5000 UNIT/0.5 ML CARP SQ SCH ×2 (06:17→20:53)
[2017-12-28 06:52] LABS: HEMATOCRIT 33.3 % (42-52); HEMOGLOBIN 10.7 g/dL (14.0-18.0); MEAN CELL VOLUME 93.3 fL (80-100); MEAN CORPUSCULAR HGB CONC 32.1 g/dl (32-36); MEAN PLATELET VOLUME 9.8 fL (7.4-10.4); PLATELET COUNT 173 K/uL (130-400); RED CELL DISTRIBUTION WIDTH CV 16.6 % (11.5-14.5); RED CELL DISTRIBUTION WIDTH SD 57.2 fL (36.4-46.3); WHITE BLOOD COUNT 5.07 K/uL (4.8-10.8)
[2017-12-28 07:19] LABS: CALCIUM 8.6 mg/dl (8.5-10.1); CREATININE 1.43 mg/dl (0.60-1.40); POTASSIUM 3.6 mmol/L (3.5-5.1)
[2017-12-28 07:37] VITALS: BP 159/79; PULSE 60; TEMP 36.4; O2SAT 95
[2017-12-28] MEDS: GABAPENTIN 100 MG CAP PO SCH ×2 (07:38→20:44)
[2017-12-28] MEDS: PRAMIPEXOLE DIHYDROCHLORIDE 0.5 MG TAB PO SCH (07:38)
[2017-12-28] MEDS: RANITIDINE HCL 150 MG TAB PO SCH ×2 (07:38→20:42)
[2017-12-28] MEDS: ISOSORBIDE MONONITRATE 30 MG TABCR PO SCH (07:38)
[2017-12-28] MEDS: AMIODARONE 200 MG TAB PO SCH (07:39)
[2017-12-28] MEDS: ACETYLCYSTEINE 600 MG CAP PO SCH ×2 (07:39→20:43)
[2017-12-28] MEDS: MAGNESIUM OXIDE 400 MG TAB PO SCH (07:39)
[2017-12-28] MEDS: MIRABEGRON ER 25 MG TAB PO SCH (07:40)
[2017-12-28] MEDS: ROPINIROLE HCL 1 MG TAB PO SCH ×2 (07:40→20:43)
[2017-12-28] MEDS: ATORVASTATIN 40 MG TAB PO SCH (07:40)
[2017-12-28] MEDS: OXYBUTYNIN CHLORIDE 5 MG TAB PO SCH ×2 (07:40→20:41)
[2017-12-28] MEDS: CARVEDILOL 6.25 MG TAB PO SCH ×2 (07:40→20:00)
[2017-12-28] MEDS: BuPROPion SR 150 MG TABCR PO SCH ×2 (07:40→20:40)
[2017-12-28] MEDS: DOCUSATE SODIUM 100 MG CAP PO SCH (07:41)
[2017-12-28] MEDS: POLYETHYLENE (MIRALAX) 17 GM PACK PO SCH (07:41)
[2017-12-28 07:56] LABS: HEMOGLOBIN A1C 5.1 % (4.5-5.6)
[2017-12-28 08:00] VITALS: O2SAT 95
--- NOTE | 2017-12-28 09:29 | Clinical Documentation Query ---
Dr. MONTEMAYOR, [facility] : CLINICAL DOCUMENTATION QUERY Patient is a 77 year old male admitted for evaluation of weakness and frequent falls. Noted history of CHF, unspecified. Echocardiogram demonstrated a severely reduced LVEF at 25-30% and reduced RV systolic function. Progress note suggested "possible component of CHF". Chest radiograph read to include: 1. Cardiomegaly with bilateral mixed interstitial and alveolar opacities suggesting pulmonary edema with superimposed pneumonia difficult to exclude.. 2. Small bilateral pleural effusions. He has recieved IV Lasix, and is being treated with Vasotec, Amiodarone, Coreg, and Imdur. In your clinical opinion is this patient being managed for: ( x ) (Possible)Acute on chronic biventricular systolic CHF ( ) Not Agree ( ) Other explanation of clinical findings (Please Explain. If no explanation given, this would be considered a no response.) ( ) Unable to determine ( ) Need to Discuss (Please call CDS via extension or qliq. If no interaction occurs this is considered a no response.) The medical record reflects the following clinical findings, treatment, and risk factors. Clinical Indicators: As above Treatment: As above Risk Factors: Age, atrial fibrillation, HTN Please clarify and document your clinical opinion in the progress notes and discharge summary. Terms such as "probable", "suspected", "likely", "questionable", "possible", or "still to be ruled out" are acceptable. IF IN AGREEMENT, YOU MUST DOCUMENT ABOVE DIAGNOSTIC STATEMENT IN DAILY PROGRESS NOTES AND DISCHARGE SUMMARY. This document is not part of the patient's record. Thank You, Du Teresa, RN [phone]
--- NOTE | 2017-12-28 15:12 | DIAGNOSTIC IMAGING REPORT ---
R KNEE 4 OR MORE VIEWS HISTORY: 77 years-old Male right knee pain, hx of right TKA acute right knee pain COMPARISON: Right lower extremity CT 12/27/2017 TECHNIQUE: 4 views of the right knee FINDINGS: Right knee arthroplasty and prior patellar resurfacing without complication. Moderate sized joint effusion with soft tissue prominence within the region of the popliteal fossa measuring up to 8.9 cm corresponding with lesion seen on comparison CT. No acute fracture or dislocation. Mild soft tissue swelling about the knee with peripheral arterial calcifications. Dystrophic calcifications are noted about the knee. IMPRESSION: 1. Right knee arthroplasty with satisfactory alignment. No acute fracture or dislocation. 2. Moderate joint effusion with lesion of the popliteal fossa redemonstrated. 3. Peripheral arterial disease. The above report was generated using voice recognition software. It may contain grammatical, syntax or spelling errors. Electronically signed by: Rohan Stiles M.D. 12/28/2017 3:11 PM Dictated Date/Time: 12/28/2017 3:05 PM
--- NOTE | 2017-12-28 15:20 | Family Medicine Progress Note ---
Progress Note Date of Service December 28, 2017. Subjective Spoke at length with pt this morning regarding overlying status of his physical condition. Pt is reluctant but does eventually admit to having pain in his right knee for some time, a well as gradual deconditioning/weakness for which he is seen by his PCP Dr. Lopez and who recommended he be admitted here due to his last fall at home. Says he tends to "slide" his right foot at home because it is getting "more weak". Spoke at length with pt's girlfriend with whom he lives, Gabbi, and she states his weakness has been progressive and gradual since at least one year ago and indeed he does have h/o sacral decubitus wound as far back as 3 yrs ago. He scoots around on a "transport chair" at home and usually used his legs to locomote, but lately has started "swaying" and not using his legs since 1 monht ago. Gabbi concerned his weakness is getting worse, and while pt has stated he does not want to go toa snf, may relent to inpatient rehab. Per nursing there is some question as to pt's mental status, and girlfriend Gabbi corroborates some increasing forgetfulness at home. Pt has no other complaints at this time, denies: dyspnea, headache, chest pain, abdominal pain, dysuria/diarrhea or calf tenderness. ROS See HPI for pertinent positives and negatives. Objective Physical Exam Notes: GENERAL: Awake, alert and oriented to person place and time, in no distress. HENT: Normocephalic, atraumatic. EYES: Normal conjunctiva. Sclera non-icteric. NECK: Supple. FROM. RESPIRATORY: Clear to auscultation albeit small crackles on right base. CARDIAC: Regular rate, normal rhythm. Extremities warm and well perfused. Pulses equal. ABDOMEN: Soft, non-distended. No tenderness to palpation. No rebound or guarding. No masses. LOWER EXTREMITIES: Calves are equal size bilaterally and non-tender. Negative for tenderness to palpation at RIGHT posterior knee with no evidence of swelling there or hematoma. Trace edema. Discoloration consistent with venous stasis. NEURO: Symmetrical proximal muscle weakness noted in upper and lower extremities. No sensory deficits noted. CN II-XII grossly in tact. SKIN: No jaundice noted. Assessment and Plan 77M here for mechanical fall at home in background of chronic deconditioning and progressive weakness. PMH sig for CHF, CAD, pacemaker, CKD, atrial fibrillation, thyroid disease, and T2DM. #. 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 Per girlfriend, he is not interested in [facility] in particular, perhaps [facility] or [facility] would be better. 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 Have consulted ortho to review imaging and make recommendations for symptom control as it is clear he will need months of rehabilitation #. (Possible)Acute on chronic biventricular systolic CHF - Received one dose of lasix on admission. Echo 12/27/17 shows - Akinetic posterior wall, inferior wall, inferoseptum, and apex. EF 25-30%, Mild MR, TR , RV pressure - 50-60mmHg. EF in 2015 was 31% per records. Is on 20mg lasix daily at home, held on admission due to elev creatinine, as below -- will restart today #. Atrial fibrillation, CAD/s/p bypass/pacemaker/HTN, paced, continue Amio 200mg qam, Carvedilol 6.25 mg bid, Mag ox 400mg qam Will continue ASA 81, Atorvastatin 80 qam, Enalapril 10mg hs, Imdur 30mg daily. #. CKD stage 3 - Creatinine at baseline. follow kidney function #. Hypothyroidism - Continue Synthroid 137 mcg daily #. Urinary incontinence - Continue Myrbetriq Er 25mg daily, Oxybutynin 5mg bid , Finasteride 5mg hs #. Depression - Continue Bupropion SR 150 bid #. Neuropathy/ restless leg - Continue Gabapentin 200 mg bid, Ropinirole 300mg bid DVT ppx: Heparin 5000 sq q8 Code: FULL Dispo: to rehab on discharge. Contact Gabbi (girlfriend) for additional information [phone] Current Inpatient Medications Medications (Trade) Dose Ordered Sig/[place] Route Start Time Stop Time Status Last Admin Dose Admin Acetaminophen (Tylenol Tab) 650 mg Q4H PRN PO 12/25/17 23:30 6/18 23:29 Magnesium Hydroxide (Milk Of Magnesia Susp) 30 ml Q6H PRN PO 12/25/17 23:30 01/24/18 23:29 Polyethylene (Miralax Powder Packet) 17 gm DAILY PRN PO 12/25/17 23:30 01/24/18 23:29 Ondansetron HCl (Zofran Inj) 4 mg Q6H PRN IV 12/25/17 23:30 01/24/18 23:29 Amiodarone HCl (Cordarone Tab) 200 mg QAM PO 12/26/17 08:00 01/25/18 08:59 12/28/17 07:39 200 MG Aspirin (Aspirin Chew) 81 mg QPM PO 12/26/17 21:00 01/25/18 20:59 12/27/17 21:33 81 MG Atorvastatin Calcium (Lipitor Tab) 80 mg QAM PO 12/26/17 08:00 01/25/18 08:59 12/28/17 07:40 80 MG Bupropion HCl (Wellbutrin-Sr Tab) 150 mg BID PO 12/26/17 08:00 01/25/18 08:59 12/28/17 07:40 150 MG Carvedilol (Coreg Tab) 6.25 mg BID PO 12/26/17 08:00 01/25/18 08:59 12/28/17 07:40 6.25 MG Docusate Sodium (coLACE CAP) 100 mg DAILY PO 12/26/17 08:00 01/25/18 08:59 Finasteride (Proscar Tab) 5 mg HS PO 12/26/17 21:00 01/25/18 20:59 12/27/17 21:34 5 MG Folic Acid (Folvite Tab) 1 mg QAM PO 12/26/17 08:00 01/25/18 08:59 12/28/17 07:39 1 MG Gabapentin (Neurontin Cap) 200 mg BID PO 12/26/17 08:00 01/25/18 08:59 12/28/17 07:38 200 MG Isosorbide Mononitrate (Imdur Ext Rel Tab) 30 mg DAILY PO 12/26/17 08:00 01/25/18 08:59 12/28/17 07:38 30 MG Levothyroxine Sodium (Synthroid Tab) 137 mcg DAILYBB PO 12/26/17 06:30 01/25/18 06:59 12/28/17 06:12 137 MCG Magnesium Oxide (Mag-Ox Tab) 400 mg QAM PO 12/26/17 08:00 01/25/18 08:59 12/28/17 07:39 400 MG Mirabegron (Myrbetriq Er) 25 mg DAILY PO 12/26/17 08:00 01/25/18 08:59 12/28/17 07:40 25 MG Oxybutynin Chloride (Ditropan Tab) 5 mg BID PO 12/26/17 08:00 01/25/18 08:59 12/28/17 07:40 5 MG Ranitidine HCl (zANTac TAB) 300 mg BID PO 12/26/17 08:00 01/25/18 08:59 12/28/17 07:38 300 MG Ropinirole HCl (Requip Tab) 1 mg BID PO 12/26/17 08:00 01/25/18 08:59 12/28/17 07:40 1 MG Fluticasone Propionate (Flonase Nasal [place]) 2 sprays DAILY PRN ALISON 12/25/17 23:30 01/24/18 23:29 Polyethylene (Miralax Powder Packet) 17 gm QAM PO 12/26/17 08:00 01/25/18 08:59 Pramipexole Dihydrochloride (miraPEX TAB) 1 mg DAILY PO 12/26/17 08:00 01/25/18 08:59 12/28/17 07:38 1 MG Enalapril Maleate (Vasotec Tab) 10 mg HS PO 12/26/17 21:00 01/25/18 20:59 12/27/17 21:33 10 MG Heparin Sodium (Porcine) (Heparin Sq 5000 Unit/0.5ml) 5,000 unit Q8 SQ 12/26/17 06:00 01/25/18 05:59 12/28/17 06:17 5,000 UNIT Acetylcysteine (Acetylcysteine Cap) 600 mg BID PO 12/27/17 20:00 12/29/17 08:01 12/28/17 07:39 600 MG Ioversol (Optiray 320) 100 ml UD PRN IV 12/27/17 11:30 12/31/17 11:29 Date Time Temp Pulse Resp B/P (MAP) Pulse Ox O2 Delivery O2 Flow Rate FiO2 12/28/17 08:00 95 Room Air 2.0 12/28/17 07:37 36.4 60 18 159/79 (105) 95 1.0 12/28/17 00:00 Nasal Cannula 2.0 12/27/17 23:03 36.5 55 18 147/82 (103) 96 Nasal Cannula 1.0 12/27/17 19:56 57 18 135/76 (95) 94 Room Air Nasal Cannula 12/27/17 18:00 87 Room Air 2.0 Nasal Cannula 12/27/17 16:06 36.4 55 18 170/101 (124) 87 Room Air 149/81 (103) 12/28/17 05:58 12/28/17 05:58 Test 12/28/17 05:58 12/28/17 11:23 Red Blood Count 3.57 M/uL (4.7-6.1) Mean Corpuscular Volume 93.3 fL (80-100) Mean Corpuscular Hemoglobin 30.0 pg (25-34) Mean Corpuscular Hemoglobin Concent 32.1 g/dl (32-36) RDW Standard Deviation 57.2 fL (36.4-46.3) RDW Coefficient of Variation 16.6 % (11.5-14.5) Mean Platelet Volume 9.8 fL (7.4-10.4) Anion Gap 5.0 mmol/L (3-11) Est Creatinine Clear Calc Drug Dose 46.9 ml/min Estimated GFR () 55.1 Estimated GFR (Non- 47.6 BUN/Creatinine Ratio 13.8 (10-20) Calcium Level 8.6 mg/dl (8.5-10.1) Bedside Glucose 78 mg/dl (70-99) Continued [facility] stay due to: ambulation difficulties Discharge planning: rehab hospital Resident Tracking Resident Involvement: Resident Care Provided Care Provided: Adult Hospital Medicine Reviewed: Pt Seen/Exam by Me History poor historian. denied right knee pain initially but when reminded that his friend mentioned about knee pain - he said yes. Constitutional: denies: fever Respiratory: negative: short of breath Cardiovascular: denies chest pain General Appearance: no apparent distress Respiratory: lungs clear, no respiratory distress Cardiovascular: regular rate, rhythm Extremities: other (right leg - generalized muscle strength 4+. Right knee - No pain illicited to palpation of joint or range of motion. ) Neurologic/Psychiatric: alert Skin Characteristics: warm/dry Assessment/Plan Resident Physician Supervision Note: I independently interviewed and examined the patient and verified the murry history and physical, reviewed labs and image studies, discussed the case with the resident Dr. Pablo and agree with the findings and care plan.
[2017-12-28 16:00] VITALS: O2SAT 94
[2017-12-28 16:28] VITALS: BP 147/81; PULSE 55; TEMP 36.4; O2SAT 97
[2017-12-28 20:38] VITALS: BP 134/79; PULSE 55; O2SAT 97
[2017-12-28] MEDS: FINASTERIDE 5 MG TAB PO SCH (20:41)
[2017-12-28] MEDS: ASPIRIN 81 MG CHEW PO SCH (20:42)
[2017-12-28] MEDS: ENALAPRIL MALEATE 10 MG TAB PO SCH (20:48)
[2017-12-28 23:12] VITALS: BP 131/67; PULSE 57; TEMP 36.3; O2SAT 99
[2017-12-29] MEDS: LEVOTHYROXINE 137 MCG TAB PO SCH (05:33)
[2017-12-29] MEDS: HEPARIN SOD 5000 UNIT/0.5 ML CARP SQ SCH ×3 (05:33→20:40)
[2017-12-29 06:36] LABS: HEMATOCRIT 32.8 % (42-52); HEMOGLOBIN 10.5 g/dL (14.0-18.0); MEAN CELL VOLUME 93.7 fL (80-100); MEAN PLATELET VOLUME 9.3 fL (7.4-10.4); PLATELET COUNT 162 K/uL (130-400); RED CELL DISTRIBUTION WIDTH CV 16.7 % (11.5-14.5); RED CELL DISTRIBUTION WIDTH SD 57.5 fL (36.4-46.3); WHITE BLOOD COUNT 4.64 K/uL (4.8-10.8)
[2017-12-29 07:06] LABS: CALCIUM 8.1 mg/dl (8.5-10.1); CREATININE 1.44 mg/dl (0.60-1.40); POTASSIUM 3.6 mmol/L (3.5-5.1)
[2017-12-29 07:35] VITALS: BP 161/86; PULSE 60; TEMP 36.7; O2SAT 96
[2017-12-29] MEDS: DOCUSATE SODIUM 100 MG CAP PO SCH (07:44)
[2017-12-29] MEDS: POLYETHYLENE (MIRALAX) 17 GM PACK PO SCH (07:44)
[2017-12-29] MEDS: MIRABEGRON ER 25 MG TAB PO SCH (07:48)
[2017-12-29] MEDS: CARVEDILOL 6.25 MG TAB PO SCH ×2 (07:49→20:16)
[2017-12-29] MEDS: ROPINIROLE HCL 1 MG TAB PO SCH ×2 (07:49→20:15)
[2017-12-29] MEDS: ISOSORBIDE MONONITRATE 30 MG TABCR PO SCH (07:49)
[2017-12-29] MEDS: AMIODARONE 200 MG TAB PO SCH (07:49)
[2017-12-29] MEDS: RANITIDINE HCL 150 MG TAB PO SCH ×2 (07:49→20:15)
[2017-12-29] MEDS: PRAMIPEXOLE DIHYDROCHLORIDE 0.5 MG TAB PO SCH (07:49)
[2017-12-29] MEDS: ACETYLCYSTEINE 600 MG CAP PO SCH (07:49)
[2017-12-29] MEDS: BuPROPion SR 150 MG TABCR PO SCH ×2 (07:49→20:16)
[2017-12-29] MEDS: ATORVASTATIN 40 MG TAB PO SCH (07:49)
[2017-12-29] MEDS: GABAPENTIN 100 MG CAP PO SCH ×2 (07:49→20:17)
[2017-12-29] MEDS: MAGNESIUM OXIDE 400 MG TAB PO SCH (07:49)
[2017-12-29] MEDS: FUROSEMIDE 20 MG TAB PO SCH (07:49)
[2017-12-29] MEDS: OXYBUTYNIN CHLORIDE 5 MG TAB PO SCH ×2 (07:50→20:17)
[2017-12-29 08:00] VITALS: O2SAT 96
[2017-12-29 15:10] VITALS: BP 120/69; PULSE 55; TEMP 36.3; O2SAT 96
--- NOTE | 2017-12-29 15:40 | Family Medicine Progress Note ---
Progress Note Date of Service December 29, 2017. Subjective Spoke at length with pt and his motivation for physical therapy and rehabilitation. Patient is reluctant, seems to be afraid of confinement and talks a lot about the bars on his bed here in the hospital and how he doesn't like them. We spoke about safety and goals for independence, and that his reluctance to do rehab in the past has only led to more deconditioning. He is open to physical therapy, but has preferences as to where. When still his pain in his knee is zero. Exacerbated greatly by movement and ambulation. Denies chest pain or difficulty breathing at this time, is eating and voiding well. ROS See HPI for pertinent positives and negatives. Objective Physical Exam Notes: GENERAL: Awake, alert and oriented to person place and time, in no distress. HENT: Normocephalic, atraumatic. EYES: Normal conjunctiva. Sclera non-icteric. NECK: Supple. FROM. RESPIRATORY: Clear to auscultation albeit small crackles at bases. No adventitious sounds. CARDIAC: Regular rate, normal rhythm. Extremities warm and well perfused. Pulses equal. ABDOMEN: Soft, non-distended. No tenderness to palpation. No rebound or guarding. No masses. LOWER EXTREMITIES: Calves are equal size bilaterally and non-tender. Negative for tenderness to palpation at RIGHT posterior knee with no evidence of swelling there or hematoma. Trace edema. Discoloration consistent with venous stasis. NEURO: Symmetrical proximal muscle weakness noted in upper and lower extremities. No sensory deficits noted. CN II-XII grossly in tact. SKIN: No jaundice noted. Assessment and Plan 77M here for mechanical fall at home in background of chronic deconditioning and progressive weakness. PMH sig for CHF, CAD, pacemaker, CKD, atrial fibrillation, thyroid disease, and T2DM. 1. 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 Per girlfriend, he is not interested in [facility] or [facility]. 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 Have consulted ortho to review imaging and make recommendations for symptom control as it is clear he will need months of rehabilitation 2. (Possible)Acute on chronic biventricular systolic CHF - Received one dose of IV lasix on admission. Echo 12/27/17 shows - Akinetic posterior wall, inferior wall, inferoseptum, and apex. EF 25-30%, Mild MR, TR , RV pressure - 50-60mmHg. EF in 2015 was 31% per records. Restarted home 20mg lasix daily. Is currently net -3L. 3. Atrial fibrillation, CAD/s/p bypass/pacemaker/HTN, paced, continue Amio 200mg qam, Carvedilol 6.25 mg bid, Mag ox 400mg qam Will continue ASA 81, Atorvastatin 80 qam, Enalapril 10mg hs, Imdur 30mg daily. 4. CKD stage 3 - Creatinine at baseline. follow kidney function 5. Hypothyroidism - Continue Synthroid 137 mcg daily 6. Urinary incontinence - Continue Myrbetriq Er 25mg daily, Oxybutynin 5mg bid , Finasteride 5mg hs 7. Depression - Continue Bupropion SR 150 bid 8. Neuropathy/ restless leg - Continue Gabapentin 200 mg bid, Ropinirole 300mg bid 9. T2DM - Diet controlled. On no home meds and A1C here is 5.1. BSG is consistently in control. Canceled checks for now. Follow. DVT ppx: Heparin 5000 sq q8 Code: FULL Dispo: to rehab on discharge. Contact Gabbi (girlfriend) for additional information [phone] Current Inpatient Medications Medications (Trade) Dose Ordered Sig/[place] Route Start Time Stop Time Status Last Admin Dose Admin Acetaminophen (Tylenol Tab) 650 mg Q4H PRN PO 12/25/17 23:30 01/24/18 23:29 Magnesium Hydroxide (Milk Of Magnesia Susp) 30 ml Q6H PRN PO 12/25/17 23:30 01/24/18 23:29 Polyethylene (Miralax Powder Packet) 17 gm DAILY PRN PO 12/25/17 23:30 01/24/18 23:29 Ondansetron HCl (Zofran Inj) 4 mg Q6H PRN IV 12/25/17 23:30 01/24/18 23:29 Amiodarone HCl (Cordarone Tab) 200 mg QAM PO 12/26/17 08:00 01/25/18 08:59 12/29/17 07:49 200 MG Aspirin (Aspirin Chew) 81 mg QPM PO 12/26/17 21:00 01/25/18 20:59 12/28/17 20:42 81 MG Atorvastatin Calcium (Lipitor Tab) 80 mg QAM PO 12/26/17 08:00 01/25/18 08:59 12/29/17 07:49 80 MG Bupropion HCl (Wellbutrin-Sr Tab) 150 mg BID PO 12/26/17 08:00 01/25/18 08:59 12/29/17 07:49 150 MG Carvedilol (Coreg Tab) 6.25 mg BID PO 12/26/17 08:00 01/25/18 08:59 12/29/17 07:49 6.25 MG Docusate Sodium (coLACE CAP) 100 mg DAILY PO 12/26/17 08:00 01/25/18 08:59 Finasteride (Proscar Tab) 5 mg HS PO 12/26/17 21:00 01/25/18 20:59 12/28/17 20:41 5 MG Folic Acid (Folvite Tab) 1 mg QAM PO 12/26/17 08:00 01/25/18 08:59 12/29/17 07:49 1 MG Gabapentin (Neurontin Cap) 200 mg BID PO 12/26/17 08:00 01/25/18 08:59 12/29/17 07:49 200 MG Isosorbide Mononitrate (Imdur Ext Rel Tab) 30 mg DAILY PO 12/26/17 08:00 01/25/18 08:59 12/29/17 07:49 30 MG Levothyroxine Sodium (Synthroid Tab) 137 mcg DAILYBB PO 12/26/17 06:30 01/25/18 06:59 12/28/17 06:12 137 MCG Magnesium Oxide (Mag-Ox Tab) 400 mg QAM PO 12/26/17 08:00 01/25/18 08:59 12/29/17 07:49 400 MG Mirabegron (Myrbetriq Er) 25 mg DAILY PO 12/26/17 08:00 01/25/18 08:59 12/29/17 07:48 25 MG Oxybutynin Chloride (Ditropan Tab) 5 mg BID PO 12/26/17 08:00 01/25/18 08:59 12/29/17 07:50 5 MG Ranitidine HCl (zANTac TAB) 300 mg BID PO 12/26/17 08:00 01/25/18 08:59 12/29/17 07:49 300 MG Ropinirole HCl (Requip Tab) 1 mg BID PO 12/26/17 08:00 01/25/18 08:59 12/29/17 07:49 1 MG Fluticasone Propionate (Flonase Nasal [place]) 2 sprays DAILY PRN ALISON 12/25/17 23:30 01/24/18 23:29 Polyethylene (Miralax Powder Packet) 17 gm QAM PO 12/26/17 08:00 01/25/18 08:59 Pramipexole Dihydrochloride (miraPEX TAB) 1 mg DAILY PO 12/26/17 08:00 01/25/18 08:59 12/29/17 07:49 1 MG Enalapril Maleate (Vasotec Tab) 10 mg HS PO 12/26/17 21:00 01/25/18 20:59 12/28/17 20:48 10 MG Heparin Sodium (Porcine) (Heparin Sq 5000 Unit/0.5ml) 5,000 unit Q8 SQ 12/26/17 06:00 01/25/18 05:59 12/29/17 13:44 5,000 UNIT Ioversol (Optiray 320) 100 ml UD PRN IV 12/27/17 11:30 12/31/17 11:29 Furosemide (Lasix Tab) 20 mg QAM PO 12/29/17 08:00 01/28/18 07:59 12/29/17 07:49 20 MG Date Time Temp Pulse Resp B/P (MAP) Pulse Ox O2 Delivery O2 Flow Rate FiO2 12/29/17 15:10 36.3 55 20 120/69 (86) 96 2.0 12/29/17 08:00 96 Nasal Cannula 2.0 12/29/17 07:35 36.7 60 20 161/86 (111) 96 Nasal Cannula 2.0 12/29/17 00:00 Nasal Cannula 2.0 12/28/17 23:12 36.3 57 18 131/67 (88) 99 Nasal Cannula 2.0 12/28/17 20:38 55 134/79 (97) 97 Nasal Cannula 2.0 12/28/17 20:00 Nasal Cannula 2.0 12/28/17 16:28 36.4 55 18 147/81 (103) 97 Nasal Cannula 2.0 12/28/17 16:00 94 Room Air 2.0 Last Resulted 12/29/17 06:15 Last Resulted 12/29/17 06:15 Continued [facility] stay due to: ambulation difficulties Discharge planning: rehab hospital Resident Tracking Resident Involvement: Resident Care Provided Care Provided: Adult Hospital Medicine Reviewed: Pt Seen/Exam by Me History no new concerns awaiting ortho input and rehab placement denies knee pain Respiratory: negative: short of breath Cardiovascular: denies chest pain General Appearance: no apparent distress Respiratory: lungs clear, no respiratory distress Cardiovascular: regular rate, rhythm Neurologic/Psychiatric: alert Skin Characteristics: warm/dry Assessment/Plan Resident Physician Supervision Note: I independently interviewed and examined the patient and verified the murry history and physical, reviewed labs and image studies, discussed the case with the resident Dr. Pablo and agree with the findings and care plan.
[2017-12-29 16:00] VITALS: O2SAT 96
--- NOTE | 2017-12-29 20:17 | Orthopedic Consultation ---
Orthopedic Consultation Date of Consultation: December 29, 2017. Attending Physician: Josephine Padgett M.D. Reason for Consultation: Right knee pain History of Present Illness Patient seen for right knee pain, currently asymptomatic, states his pain has been intermittent over the last 2 months, denies daily occurrence. States his last symptoms were one week prior. Pain localized to the posterior aspect of his right knee. Has PShx of R TKA done in 2003 in [place], patient does not remember surgeons name. Denies fevers, chills, erythema, edema or trauma. Prior to the last 2 months the patient has been pain free since his total knee replacement. Denies night sweats, unexpected weight loss, night pain or history of cancer. Past Medical/Surgical History Medical Problems: (1) ROLANDO (acute kidney injury) Status: Acute (2) Chronic renal disease Status: Acute (3) Diabetes mellitus, new onset Status: Acute (4) Elevated brain natriuretic peptide (BNP) level Status: Acute (5) Generalized weakness Status: Acute (6) Lower extremity edema Status: Acute Family History Cancer Heart disease Hypertension Kidney stones Social History Smoking Status: Former Smoker Smokeless Tobacco Use: No Alcohol Use: none Drug Use: none Marital Status: Housing Status: lives with roommate Occupation Status: retired Allergies Coded Allergies: Zolpidem (Verified Allergy, Unknown, UNKN, 11/17/17) Home Medications Scheduled Amiodarone HCl (Amiodarone HCl), 200 MG PO QAM Aspirin (Aspirin Chewable), 81 MG PO QPM Atorvastatin (Lipitor), 80 MG PO QAM Bupropion Hcl (Wellbutrin Sr), 150 MG PO BID Carvedilol (Coreg), 6.25 MG PO BID Docusate Sodium (Colace), 1 CAP PO DAILY Ergocalciferol (Vitamin D 70058 Unit), 50,000 UNITS PO WK Finasteride (Proscar), 5 MG PO HS Folic Acid (Folvite), 1 MG PO QAM Gabapentin (Gabapentin), 200 MG PO BID Isosorbide Mononitrate (Isosorbide Mononitrate ER), 1 TAB PO DAILY Levothyroxine Sodium (Levothyroxine Sodium), 137 MCG PO QAM Lorazepam (Lorazepam), 0.5 MG PO QPM Magnesium Oxide (Mag-Ox), 400 MG PO QAM Mirabegron (Myrbetriq Er), 25 MG PO DAILY Nitroglycerin (Nitroglycerin Lingual), 1 SPRAYS TL UD Oxybutynin Chloride (Ditropan), 5 MG PO BID Polyethylene Glycol 3350 (Miralax), 17 GM PO QAM Pramipexole Dihydrochloride (Pramipexole Dihydrochlori), 1 MG PO DAILY Ramipril (Ramipril), 1 CAP PO HS Ranitidine Hcl (Zantac), 2 TAB PO BID Ropinirole (Requip), 2 TAB PO BID Tamsulosin Hcl (Flomax), 0.4 MG PO BID Scheduled PRN Hydrocodone/Acetaminophen 7.5MG/325MG ([place] 7.5MG/325MG), 1-2 TABS PO Q4 PRN for Pain Mometasone Furoate (Nasal) (Mometasone Furoate), 2 SPRAYS ALISON DAILY PRN for Nasal Congestion Miscellaneous Medications Furosemide (Lasix), 20 MG PO Current Inpatient Medications Current Inpatient Medications Medications (Trade) Dose Ordered Sig/[place] Route Start Time Stop Time Status Last Admin Dose Admin Acetaminophen (Tylenol Tab) 650 mg Q4H PRN PO 12/25/17 23:30 01/24/18 23:29 Magnesium Hydroxide (Milk Of Magnesia Susp) 30 ml Q6H PRN PO 12/25/17 23:30 01/24/18 23:29 Polyethylene (Miralax Powder Packet) 17 gm DAILY PRN PO 12/25/17 23:30 01/24/18 23:29 Ondansetron HCl (Zofran Inj) 4 mg Q6H PRN IV 12/25/17 23:30 01/24/18 23:29 Amiodarone HCl (Cordarone Tab) 200 mg QAM PO 12/26/17 08:00 01/25/18 08:59 12/29/17 07:49 200 MG Aspirin (Aspirin Chew) 81 mg QPM PO 12/26/17 21:00 01/25/18 20:59 12/28/17 20:42 81 MG Atorvastatin Calcium (Lipitor Tab) 80 mg QAM PO 12/26/17 08:00 01/25/18 08:59 12/29/17 07:49 80 MG Bupropion HCl (Wellbutrin-Sr Tab) 150 mg BID PO 12/26/17 08:00 01/25/18 08:59 12/29/17 07:49 150 MG Carvedilol (Coreg Tab) 6.25 mg BID PO 12/26/17 08:00 01/25/18 08:59 12/29/17 07:49 6.25 MG Docusate Sodium (coLACE CAP) 100 mg DAILY PO 12/26/17 08:00 01/25/18 08:59 Finasteride (Proscar Tab) 5 mg HS PO 12/26/17 21:00 01/25/18 20:59 12/28/17 20:41 5 MG Folic Acid (Folvite Tab) 1 mg QAM PO 12/26/17 08:00 01/25/18 08:59 12/29/17 07:49 1 MG Gabapentin (Neurontin Cap) 200 mg BID PO 12/26/17 08:00 01/25/18 08:59 12/29/17 07:49 200 MG Isosorbide Mononitrate (Imdur Ext Rel Tab) 30 mg DAILY PO 12/26/17 08:00 01/25/18 08:59 12/29/17 07:49 30 MG Levothyroxine Sodium (Synthroid Tab) 137 mcg DAILYBB PO 12/26/17 06:30 01/25/18 06:59 12/28/17 06:12 137 MCG Magnesium Oxide (Mag-Ox Tab) 400 mg QAM PO 12/26/17 08:00 01/25/18 08:59 12/29/17 07:49 400 MG Mirabegron (Myrbetriq Er) 25 mg DAILY PO 12/26/17 08:00 01/25/18 08:59 12/29/17 07:48 25 MG Oxybutynin Chloride (Ditropan Tab) 5 mg BID PO 12/26/17 08:00 01/25/18 08:59 12/29/17 07:50 5 MG Ranitidine HCl (zANTac TAB) 300 mg BID PO 12/26/17 08:00 01/25/18 08:59 12/29/17 07:49 300 MG Ropinirole HCl (Requip Tab) 1 mg BID PO 12/26/17 08:00 01/25/18 08:59 12/29/17 07:49 1 MG Fluticasone Propionate (Flonase Nasal [place]) 2 sprays DAILY PRN ALISON 12/25/17 23:30 01/24/18 23:29 Polyethylene (Miralax Powder Packet) 17 gm QAM PO 12/26/17 08:00 01/25/18 08:59 Pramipexole Dihydrochloride (miraPEX TAB) 1 mg DAILY PO 12/26/17 08:00 01/25/18 08:59 12/29/17 07:49 1 MG Enalapril Maleate (Vasotec Tab) 10 mg HS PO 12/26/17 21:00 01/25/18 20:59 12/28/17 20:48 10 MG Heparin Sodium (Porcine) (Heparin Sq 5000 Unit/0.5ml) 5,000 unit Q8 SQ 12/26/17 06:00 01/25/18 05:59 12/29/17 13:44 5,000 UNIT Ioversol (Optiray 320) 100 ml UD PRN IV 12/27/17 11:30 12/31/17 11:29 Furosemide (Lasix Tab) 20 mg QAM PO 12/29/17 08:00 01/28/18 07:59 12/29/17 07:49 20 MG Review of Systems Review of systems negative with the exception of those mentioned in the HPI above. Physical Exam Date Time Temp Pulse Resp B/P (MAP) Pulse Ox O2 Delivery O2 Flow Rate FiO2 12/29/17 15:10 36.3 55 20 120/69 (86) 96 2.0 12/29/17 08:00 96 Nasal Cannula 2.0 12/29/17 07:35 36.7 60 20 161/86 (111) 96 Nasal Cannula 2.0 12/29/17 00:00 Nasal Cannula 2.0 12/28/17 23:12 36.3 57 18 131/67 (88) 99 Nasal Cannula 2.0 12/28/17 20:38 55 134/79 (97) 97 Nasal Cannula 2.0 NAD, AOx3 RLE: NVSI +EHL/FHL/TA/GS SILT grossly, compartment soft NT, fullness to palpation, large mass to the posterior aspect of the distal femur. No effusion , no erythema or signs of infection. ROM 5-90 degrees, painless. Laboratory Results Last 24 Hours Test 12/28/17 20:28 12/29/17 06:15 12/29/17 07:51 12/29/17 12:00 Bedside Glucose 99 mg/dl 81 mg/dl 83 mg/dl White Blood Count 4.64 K/uL Red Blood Count 3.50 M/uL Hemoglobin 10.5 g/dL Hematocrit 32.8 % Mean Corpuscular Volume 93.7 fL Mean Corpuscular Hemoglobin 30.0 pg Mean Corpuscular Hemoglobin Concent 32.0 g/dl RDW Standard Deviation 57.5 fL RDW Coefficient of Variation 16.7 % Platelet Count 162 K/uL Mean Platelet Volume 9.3 fL Sodium Level 140 mmol/L Potassium Level 3.6 mmol/L Chloride Level 105 mmol/L Carbon Dioxide Level 30 mmol/L Anion Gap 5.0 mmol/L Blood Urea Nitrogen 19 mg/dl Creatinine 1.44 mg/dl Est Creatinine Clear Calc Drug Dose 46.6 ml/min Estimated GFR () 54.7 Estimated GFR (Non- 47.2 BUN/Creatinine Ratio 13.1 Random Glucose 67 mg/dl Calcium Level 8.1 mg/dl Test 12/29/17 16:43 Bedside Glucose 87 mg/dl Assessment & Plan Right posterior thigh intramuscular soft tissue tumor and popliteal cyst -Ideally would get MRI with and without contrast. Likely lipoma and hemographic cyst however would obtain complete work up to rule out more aggressive soft tissue tumor, CT Chest/Abdomen/pelvis, bone scan, inflammatory labs (ESR/CRP/CBC) and spep, upep, cmp. Recommend patient see orthopedic oncologist for work up and possible biopsy. Does not need to be done during this hospital stay however would have appropriate follow up appointment in place prior to discharge. Would consider Leidy Arora or be seen at [facility], [place], [place]. Thank you for the consultation. L KNEE 1 OR 2 VIEWS ROUTINE HISTORY: 77 years-old Male trauma acute left knee pain status post trauma COMPARISON: None available TECHNIQUE: 2 views of the left knee FINDINGS: Bones are mildly demineralized. Tricompartmental osteoarthritis, moderate within the lateral compartment and severe is in the medial and patellofemoral compartments. Chondrocalcinosis. Ossifications are noted within the suprapatellar tissues measuring up to 1.6 cm. Trace joint effusion. Peripheral arterial disease. Surgical clips project over the popliteal tissues. No acute fracture or dislocation. IMPRESSION: 1. No acute fracture or dislocation. 2. Tricompartmental osteoarthritis with chondrocalcinosis, trace joint effusion and suspected intra-articular loose bodies. 3. Peripheral arterial disease. [~ rep ct add3]] R PELVIS/UNILATERAL HIP 2-3VIEWS, R FEMUR 2 VIEWS ROUTINE HISTORY: 77 years-old Male TRAUMA, FALL acute pelvic and right hip pain status post fall COMPARISON: None available TECHNIQUE: AP view of the pelvis with 2 views of the right hip and 2 views of the right femur FINDINGS: PELVIS: Bones appear mildly demineralized. Moderate degenerative changes about the bilateral femoral acetabular joints. Peripheral vascular disease with phleboliths of the pelvis. Multilevel degenerative changes about the lower lumbar spine. No acute fracture or dislocation. FEMUR: No acute fracture or dislocation. Imaged right hemipelvis appears intact. Right knee arthroplasty changes. Moderate soft tissue swelling about the knee with soft tissue prominence of the popliteal fossa displacing adjacent peripherally calcified arterial structures. IMPRESSION: 1. No acute fracture or dislocation. 2. Degenerative changes as above with right knee arthroplasty. R PELVIS/UNILATERAL HIP 2-3VIEWS, R FEMUR 2 VIEWS ROUTINE HISTORY: 77 years-old Male TRAUMA, FALL acute pelvic and right hip pain status post fall COMPARISON: None available TECHNIQUE: AP view of the pelvis with 2 views of the right hip and 2 views of the right femur FINDINGS: PELVIS: Bones appear mildly demineralized. Moderate degenerative changes about the bilateral femoral acetabular joints. Peripheral vascular disease with phleboliths of the pelvis. Multilevel degenerative changes about the lower lumbar spine. No acute fracture or dislocation. FEMUR: No acute fracture or dislocation. Imaged right hemipelvis appears intact. Right knee arthroplasty changes. Moderate soft tissue swelling about the knee with soft tissue prominence of the popliteal fossa displacing adjacent peripherally calcified arterial structures. IMPRESSION: 1. No acute fracture or dislocation. 2. Degenerative changes as above with right knee arthroplasty. R VENOUS DOPP LOWER EXT UNILAT CLINICAL HISTORY: 77 years-old Male presenting with right leg and thigh pain; rule out DVT. TECHNIQUE: Real-time grayscale and color and spectral Doppler ultrasound imaging of the veins of the right lower extremity was performed. Compression and augmentation were also utilized. COMPARISON: None. FINDINGS: Right: Common femoral vein: Patent. Greater saphenous vein: Patent. Deep femoral vein: Patent. Femoral vein: Patent. Popliteal vein: Patent. Calf veins: Limited visualization secondary to subcutaneous edema. Other: 5.3 x 4.0 x 5.0 complex hypoechoic collection in the posterior distal thigh and popliteal fossa, which is avascular on color Doppler. The appearance is not characteristic of a popliteal cyst. IMPRESSION: 1. No evidence of deep venous thrombosis. 2. Complex mass in the posterior distal thigh and popliteal fossa. Soft tissue neoplasm cannot be excluded though this may represent a complex popliteal cyst or hematoma. Contrast-enhanced MR of the knee/thigh recommended for further evaluation. R LOWER EXTREMITY WITH HISTORY: 77 years-old Male right dist thigh/popliteal mass; MRI contraind due to pacer follow-up study to assess right distal thigh/popliteal lesion COMPARISON: Duplex venous Doppler study 12/26/2017, right femur radiographs 12/25/2017 TECHNIQUE: Multiple axial CT images of the right lower extremity were obtained following the intravenous administration of 95 mL Optiray 320 IV contrast. Coronal and sagittal reformatted images were obtained from the axial data set and were submitted for review. A dose lowering technique was used consistent with the principals of ALARA. FINDINGS: Evaluation of the structures about the knee is limited secondary to artifact from right knee arthroplasty. Bones are mildly demineralized. Peripherally corticated subcortical lucencies about the posterior femur are noted measuring up to 2.6 cm within the medial femoral condyle nicely seen on image 898 series 3 and measuring up to 2.2 cm within the lateral femoral condyle. No acute fracture or dislocation. Moderate degenerative changes about the right femoral acetabular joint. No suspicious bony mass lesions identified. Trace free fluid within the pelvis of unknown etiology. Moderate mixed plaquing of the arterial structures about the right lower extremity without popliteal artery aneurysm identified. Moderate muscular atrophy. 6.6 cm lipoma of the semitendinosis musculature nicely seen on image 71 of series 300. Moderate mildly complex joint effusion. There is a multiloculated heterogeneous partially fluid attenuating structure of the popliteal fossa measuring up to 7.5 x 5.0 x 6.7 cm which is circumscribed without invasion into adjacent structures. IMPRESSION: 1. Multiloculated heterogeneous partially fluid attenuating structure of the popliteal fossa is partially obscured by streak artifact from right knee arthroplasty. 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 2. Subcortical lucencies about the femoral hardware as above are suspicious for underlying particle disease or remodeling changes. 3. No popliteal artery aneurysm identified. 4. Moderate joint effusion. 5. 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 6. No acute fracture or subluxation. R KNEE 4 OR MORE VIEWS HISTORY: 77 years-old Male right knee pain, hx of right TKA acute right knee pain COMPARISON: Right lower extremity CT 12/27/2017 TECHNIQUE: 4 views of the right knee FINDINGS: Right knee arthroplasty and prior patellar resurfacing without complication. Moderate sized joint effusion with soft tissue prominence within the region of the popliteal fossa measuring up to 8.9 cm corresponding with lesion seen on comparison CT. No acute fracture or dislocation. Mild soft tissue swelling about the knee with peripheral arterial calcifications. Dystrophic calcifications are noted about the knee. IMPRESSION: 1. Right knee arthroplasty with satisfactory alignment. No acute fracture or dislocation. 2. Moderate joint effusion with lesion of the popliteal fossa redemonstrated. 3. Peripheral arterial disease.
[2017-12-29] MEDS: ENALAPRIL MALEATE 10 MG TAB PO SCH (20:38)
[2017-12-29] MEDS: FINASTERIDE 5 MG TAB PO SCH (20:39)
[2017-12-29] MEDS: ASPIRIN 81 MG CHEW PO SCH (20:39)
[2017-12-29 23:00] VITALS: BP 155/85; PULSE 60; TEMP 36.6; O2SAT 93
[2017-12-30] MEDS: LEVOTHYROXINE 137 MCG TAB PO SCH (06:05)
[2017-12-30] MEDS: HEPARIN SOD 5000 UNIT/0.5 ML CARP SQ SCH ×2 (06:07→11:17)
[2017-12-30 07:25] VITALS: BP 127/66; PULSE 56; TEMP 36.4; O2SAT 97
[2017-12-30] MEDS: ATORVASTATIN 40 MG TAB PO SCH (08:41)
[2017-12-30] MEDS: RANITIDINE HCL 150 MG TAB PO SCH (08:42)
[2017-12-30] MEDS: ISOSORBIDE MONONITRATE 30 MG TABCR PO SCH (08:42)
[2017-12-30] MEDS: FUROSEMIDE 20 MG TAB PO SCH (08:42)
[2017-12-30] MEDS: OXYBUTYNIN CHLORIDE 5 MG TAB PO SCH (08:42)
[2017-12-30] MEDS: BuPROPion SR 150 MG TABCR PO SCH (08:42)
[2017-12-30] MEDS: GABAPENTIN 100 MG CAP PO SCH (08:42)
[2017-12-30] MEDS: MIRABEGRON ER 25 MG TAB PO SCH (08:42)
[2017-12-30] MEDS: AMIODARONE 200 MG TAB PO SCH (08:42)
[2017-12-30] MEDS: MAGNESIUM OXIDE 400 MG TAB PO SCH (08:42)
[2017-12-30] MEDS: ROPINIROLE HCL 1 MG TAB PO SCH (08:42)
[2017-12-30] MEDS: CARVEDILOL 6.25 MG TAB PO SCH ×2 (08:43→08:45)
[2017-12-30] MEDS: DOCUSATE SODIUM 100 MG CAP PO SCH (08:43)
[2017-12-30] MEDS: PRAMIPEXOLE DIHYDROCHLORIDE 0.5 MG TAB PO SCH (08:43)
[2017-12-30] MEDS: POLYETHYLENE (MIRALAX) 17 GM PACK PO SCH (08:43)
[2017-12-30 10:08] VITALS: O2SAT 96
[2017-12-30 10:37] VITALS: BP 127/66; PULSE 56; TEMP 36.4; O2SAT 96
--- NOTE | 2017-12-30 11:12 | Discharge Instructions ---
Discharge Instructions Date of Service December 30, 2017. Admission Reason for Admission: Ambulbulatory Dysfunction, Frequent Falls Discharge Discharge Diagnosis / Problem: Ambulatory Dysfunction, Frequent Falls Discharge Goals Goal(s): Decrease discomfort, Increase independence, Improve disease control, Learn about illness Activity Recommendations Activity Level: Assistance Required Therapies: Physical Therapy, Occupational Therapy Lifting Limitations: gradually increase as tolerated Exercise/Sports Limitations: gradually increase as tolerated Shower/Bathe: no limitations . Additional Information Patient informed of condition: Yes Advance Directives: No DNR: No Level of Care: Acute Rehab Communicable Disease: No Prognosis: Stable Oxygen at (LPM): 2 Casas Catheter: No Current Hospital Diet Patient's current hospital diet: AHA Diet (Heart Healthy) Discharge Diet Recommended Diet: AHA Diet (Heart Healthy) Pending Studies Studies pending at discharge: no Laboratory Results Hemoglobin A1c Test 12/27/17 05:39 Range/Units Estimated Average Glucose 100 mg/dl Hemoglobin A1c 5.1 4.5-5.6 % Medical Emergencies . Who to Call and When: Medical Emergencies: If at any time you feel your situation is an emergency, please call 911 immediately. . Non-Emergent Contact Non-Emergency issues call your: Primary Care Provider . . "Provider Documentation" section prepared by Kerrie Pablo. . Survey Technologist Recommendations Survey Technologist Recommendations: Right posterior thigh intramuscular soft tissue tumor and popliteal cyst -Ideally would get MRI with and without contrast. Likely lipoma and hemographic cyst however would obtain complete work up to rule out more aggressive soft tissue tumor, CT Chest/Abdomen/pelvis, bone scan, inflammatory labs (ESR/CRP/CBC) and spep, upep, cmp - recommend patient see orthopedic oncologist for work up and possible biopsy. Does not need to be done during this hospital stay however would have appropriate follow up appointment in place prior to discharge. Would consider Leidy Arora or be seen at [facility], [place]. Jonas Carreon Orthopedic consultation Core Measure Problem Core Measures: None
--- NOTE | 2017-12-30 20:16 | Discharge Summary ---
Discharge Summary Date of Service December 30, 2017. Discharge Summary Admission Date: December 25, 2017 at 23:27 Discharge Date: December 30, 2017 Discharge Disposition: Home Principal Diagnosis: Ambulatory disfunction, deconditioning, mechanical falls Problems/Secondary Diagnoses: diastolic CHF Cyst in posterior knee suspicious for hemorrhagic terrell's cyst CAD pacemaker CKD Atrial Fibrillation hypothyroid Type II DM - diet controlled Immunizations: Have You Had Influenza Vaccine: Unknown History of Tetanus Vaccine?: Unknown History of Pneumococcal: Unknown History of Hepatitis B Vaccine: Unknown Medication Reconciliation Continued Medications: Amiodarone HCl (Amiodarone HCl) 200 Mg Tab 200 MG PO QAM, TAB Aspirin (Aspirin Chewable) 81 Mg Chew 81 MG PO QPM Atorvastatin (Lipitor) 80 Mg Tab 80 MG PO QAM, TAB Bupropion Hcl (Wellbutrin Sr) 150 Mg Tabcr 150 MG PO BID, TAB Carvedilol (Coreg) 6.25 Mg Tab 6.25 MG PO BID, TAB Docusate Sodium (Colace) 100 Mg Cap 1 CAP PO DAILY for 30 Days, #60 CAP Ergocalciferol (Vitamin D 14963 Unit) 50,000 Unit Cap 31523 UNITS PO WK Finasteride (Proscar) 5 Mg Tab 5 MG PO HS, TAB Folic Acid (Folvite) 1 Mg Tab 1 MG PO QAM, TAB Furosemide (Lasix) 20 Mg Tab 20 MG PO, TAB Gabapentin (Gabapentin) 100 Mg Cap 200 MG PO BID Hydrocodone/Acetaminophen 7.5MG/325MG ([place] 7.5MG/325MG) Tab 1-2 TABS PO Q4 PRN for Pain for 3 Days, #10 TAB Isosorbide Mononitrate (Isosorbide Mononitrate ER) 30 Mg Tabcr 1 TAB PO DAILY Levothyroxine Sodium (Levothyroxine Sodium) 137 Mcg Tab 137 MCG PO QAM Lorazepam (Lorazepam) 0.5 Mg Tab 0.5 MG PO QPM Magnesium Oxide (Mag-Ox) 400 Mg Tab 400 MG PO QAM, TAB Mirabegron (Myrbetriq Er) 25 Mg Tab 25 MG PO DAILY, TAB Mometasone Furoate (Nasal) (Mometasone Furoate) 50 Mcg/Act Spr 2 SPRAYS ALISON DAILY PRN for Nasal Congestion Nitroglycerin (Nitroglycerin Lingual) 0.4 Mg/[place] Spr 1 SPRAYS TL UD Oxybutynin Chloride (Ditropan) 5 Mg Tab 5 MG PO BID, TAB Polyethylene Glycol 3350 (Miralax) 1 Pow Pow 17 GM PO QAM, #527 GM Pramipexole Dihydrochloride (Pramipexole Dihydrochlori) 1 Mg Tab 1 MG PO DAILY Ramipril (Ramipril) 2.5 Mg Cap 1 CAP PO HS for 90 Days, CAP 3 Refills Ranitidine Hcl (Zantac) 150 Mg Tab 2 TAB PO BID for 30 Days, #120 TAB 3 Refills Ropinirole (Requip) 0.5 Mg Tab 2 TAB PO BID, TAB Tamsulosin Hcl (Flomax) 0.4 Mg Cap 0.4 MG PO BID, CAP Discharge Exam Pt is conversant and well appearing on day of discharge. Pt is willing to try inpatient rehabilitation as he sees he could be a help to his cousin who is apparently also very weak and in the home. Pt denies chest pain or difficulty breathing or pain in his legs when lying still. ROS See HPI for pertinent positives and negatives. Physical exam GENERAL: Awake, alert and oriented to person place and time, in no distress. HENT: Normocephalic, atraumatic. Bitemporal wasting EYES: Normal conjunctiva. Sclera non-icteric. NECK: Supple. FROM. RESPIRATORY: Clear to auscultation albeit small crackles at bases. No adventitious sounds. CARDIAC: Regular rate, normal rhythm. Extremities warm and well perfused. Pulses equal. ABDOMEN: Soft, non-distended. No tenderness to palpation. No rebound or guarding. No masses. LOWER EXTREMITIES: Calves are equal size bilaterally and non-tender. Negative for tenderness to palpation at RIGHT posterior knee with no evidence of swelling there or hematoma. Trace edema. Discoloration consistent with venous stasis. NEURO: Symmetrical proximal muscle weakness noted in upper and lower extremities. No sensory deficits noted. CN II-XII grossly in tact. SKIN: No jaundice noted. Hospital Course Mr. Pedraza is a 77 year old male admitted due to repeated mechanical falls in the home and progressive deconditioning. Pt has a significant comorbidities, and per girlfriend Gabbi, has been getting progressively more and more weak at home. While hospitalized patient did admit to some pain in his right knee, and imaging showed a mass/cyst that was suspicious for terrell's cyst or hemorrhagic terrell's cyst. Orthopedics was consulted here and recommended the following: Right posterior thigh intramuscular soft tissue tumor and popliteal cyst -Ideally would get MRI with and without contrast. Likely lipoma and hemographic cyst however would obtain complete work up to rule out more aggressive soft tissue tumor, CT Chest/Abdomen/pelvis, bone scan, inflammatory labs (ESR/CRP/CBC) and spep, upep, cmp. Recommend patient see orthopedic oncologist for work up and possible biopsy. Does not need to be done during this hospital stay however would have appropriate follow up appointment in place prior to discharge. Would consider Leidy Arora or be seen at [facility], [place]. Patient was reluctant to go to inpatient rehabilitation facility at first, however relented and values his independence. Primary service was in contact with pt's partner Gabbi, and she is very supportive of his going to [facility]. Regarding chronic conditions: Atrial fibrillation, CAD/s/p bypass/pacemaker/HTN, - paced, continue Amio 200mg qam, Carvedilol 6.25 mg bid, Mag ox 400mg qam - Continue ASA 81, Atorvastatin 80 qam, Enalapril 10mg hs, Imdur 30mg daily. CKD stage 3 - Creatinine at baseline. follow kidney function Hypothyroidism - Continue Synthroid 137 mcg daily Urinary incontinence - Continue Myrbetriq Er 25mg daily, Oxybutynin 5mg bid, Finasteride 5mg hs Depression - Continue Bupropion SR 150 bid Neuropathy/ restless leg - Continue Gabapentin 200 mg bid, Ropinirole 300mg bid T2DM - Diet controlled. On no home meds and A1C here is 5.1. BSG is consistently in control and no insulin required. DVT ppx: Heparin 5000 sq q8 given here Code: FULL Total Time Spent: Greater than 30 minutes This includes examination of the patient, discharge planning, medication reconciliation, and communication with other providers. Discharge Instructions Please refer to the electronic Patient Visit Report (Discharge Instructions) for additional information. Additional Copies To Gavin Laboy III, CRNP Reviewed: Pt Seen/Exam by Me History no new concerns. Constitutional: denies: fever Respiratory: negative: cough, short of breath Cardiovascular: denies chest pain Musculoskeletal: negative: joint pain General Appearance: no apparent distress Respiratory: lungs clear, no respiratory distress Cardiovascular: regular rate, rhythm Gastrointestinal: soft Neurologic/Psychiatric: alert Skin Characteristics: warm/dry Assessment/Plan Resident Physician Supervision Note: I independently interviewed and examined the patient and verified the murry history and physical, reviewed labs and image studies, discussed the case with the resident Dr. Pablo and agree with the findings and care plan. Time spent in discharge 40 min
== END 2017-12-30 14:43 | DRG 91 ==
LOC: EDBD 19:14 → C.EDC 19:15 → C.4E 23:27 → ENRESERV 23:57
PROVIDERS: ADMIT Family Medicine; ATTEND Family Medicine
DX: R29.6 Repeated falls (principal); I50.23 Acute on chronic systolic (congestive) heart failure; I13.0 Hypertensive heart and chronic kidney disease with heart failure and stage 1 through stage 4 chronic kidney disease, or unspecified chronic kidney disease; M62.81 Muscle weakness (generalized); M71.21 Synovial cyst of popliteal space [Baker], right knee; I50.82 Biventricular heart failure; I48.91 Unspecified atrial fibrillation; I25.10 Atherosclerotic heart disease of native coronary artery without angina pectoris; E11.22 Type 2 diabetes mellitus with diabetic chronic kidney disease; N18.3 Chronic kidney disease, stage 3 (moderate); E11.40 Type 2 diabetes mellitus with diabetic neuropathy, unspecified; G25.81 Restless legs syndrome; E03.9 Hypothyroidism, unspecified; N40.0 Benign prostatic hyperplasia without lower urinary tract symptoms; R32 Unspecified urinary incontinence; D64.9 Anemia, unspecified; F32.9 Major depressive disorder, single episode, unspecified; Z96.651 Presence of right artificial knee joint; Z95.0 Presence of cardiac pacemaker; Z95.1 Presence of aortocoronary bypass graft; Z87.891 Personal history of nicotine dependence; Z79.82 Long term (current) use of aspirin; Z79.899 Other long term (current) drug therapy; Z88.8 Allergy status to other drugs, medicaments and biological substances; Z82.49 Family history of ischemic heart disease and other diseases of the circulatory system; Z84.1 Family history of disorders of kidney and ureter